=== PATIENT | male | born 1995 | race Native Hawaiian/Other Pacific Islander ===

== ENCOUNTER 2022-02-02 14:30 | Emergency (ER) | payer BC, SELFPAY ==
[2022-02-02 14:37] VITALS: BP 158/106; PULSE 121; RESP 20; TEMP 35.7; O2SAT 96; BMI 44.9
--- NOTE | 2022-02-02 15:02 | ED_ITS ---
HPI - General Adult General Time Seen by Provider: 15:02 Date Seen: 02/02/22 Chief complaint: Cough Stated complaint: Cough Time Seen by Provider: 02/02/22 14:36 Source: patient and RN notes reviewed Mode of arrival: ambulatory Limitations: no limitations History of Present Illness HPI narrative: Patient is a 26-year-old male coming in with cough that has been present for about 2 weeks now. He states that he has had some coffee now for 2 weeks, the length of this illness is what ultimately brought him in. His son was sick with RSV and he thinks maybe that is what he picked up. He really has only had a cough with this though. No fevers. At night in the morning is when the cough is the worst. It will be productive of green phlegm. Getting in the shower does help loosen things up. He has a rescue inhaler with albuterol but has not felt like he has needed to use it. He has had no chest pain, no shortness of breath. He has had some right-sided sore throat but has no pain with swallowing, no difficulty swallowing. This is intermittent/occasional. No otalgia. Cough drops help minimize his symptoms. He does wonder if he can have a note to be off work tomorrow and give him another day to rest. He has a history of asthma which was bad as a child but has not been problematic as a young adult. He is a nonsmoker. Related Data Previous Rx's Medication Instructions Recorded azithromycin 250 mg tablet 250 mg PO DAILY #6 tabs 02/02/22 prednisone 20 mg tablet 20 mg PO BID #10 tabs 02/02/22 Allergies Allergy/AdvReac Type Severity Reaction Status Date / Time No Known Drug Allergies Allergy Verified 02/02/22 14:39 Review of Systems Status of ROS: Reports: 6 or more systems reviewed and unremarkable except as noted in History and below Exam Const: Vital Signs, click to edit/add: Vital Signs - 24 hr 02/02/22 14:37 Temperature 96.3 F L Pulse Rate [Right Pulse Oximeter] 121 H Respiratory Rate 20 Blood Pressure [Ri ght Upper Arm] 158/106 H Pulse Oximetry 96 Oxygen Delivery Me thod Room Air Documenting provider has reviewed patient's vital signs: yes Common normals: no apparent distress, oriented x3, no limitations, alert and well nourished General appearance: cooperative, comfortable and well kempt Nutritional appearance: obese Other: Speaking in complete sentences, no difficulty talking, no hoarseness. HENMT: Common normals: normocephalic, head/scalp atraumatic, hearing grossly normal bilaterally, external ears normal, EAC's normal, TM's normal bilaterally, external nose normal, nasal mucous membranes and turbinates normal, moist oral mucous membranes, oropharynx normal, dentition normal and gingiva normal Head and scalp: normocephalic and atraumatic Nose: external nose normal and nasal mucous membranes and turbinates normal External ear: external ears normal External auditory canal: EAC's normal Tympanic membrane: TM's normal bilaterally Throat: posterior oropharynx normal and uvula midline Eye: Common normals: PERRL, EOMs intact bilaterally, conjunctivae normal and no scleral icterus Conjunctiva: conjunctiva(e) normal Pupil: PERRL Neck & C-Spine: Common normals: full ROM, no lymphadenopathy, supple, no meningeal signs, no JVD and thyroid normal Thyroid: thyroid normal Chest: Common normals: inspection of chest normal Resp: Common normals: normal respiratory effort, no retractions, no use of accessory muscles and clear to auscultation bilaterally Auscultation: clear to auscultation bilaterally Cardio: Common normals: no JVD, regular rate, regular rhythm, S1 normal heart sound, S2 normal heart sound, no gallops, no clicks and no murmurs Rate: regular rate Rhythm: regular rhythm Heart sounds: S1 normal and S2 normal Neuro: Common normals: oriented x3 Sensorium/orientation: alert Meningeal signs: no meningeal signs Psych: Appearance: well kempt Course Course Hospital Course: Reviewed with patient options. Did discuss we certainly could consider chest x- ray and CBC but without a fever and his normal clinical exam, I doubt that these will change our management. Given he has a history of asthma, I do think we can proceed with a short course of steroids to help with any postinflammatory viral issues/asthma. I am happy to send in a prescription for antibiotics but would request that he refrain from using them at this point. I think that this is post viral and possibly some asthma but there is nothing suggestive in the h istory or his clinical exam that makes me suspicious of bacterial infectious etiology. Cough does not sound severe enough that I really would not suspect that this would be pertussis. I can send a prescription with him for a Zithromax sent to be used if he is not improving in the next few days with the steroids or feels his cough starts to worsen. Did go over signs and symptoms for return for re-evaluation as well. Vital Signs Vital signs: Initial Vital Signs Temperature 96.3 F L 02/02/22 14:37 Temperature Source Temporal Artery Scan 02/02/22 14:37 Pulse Rate 121 H 02/02/22 14:37 Respiratory Rate 20 02/02/22 14:37 Blood Pressure 158/106 H 02/02/22 14:37 Blood Pressure Mean 123 02/02/22 14:37 Blood Pressure Position Sitting 02/02/22 14:37 Pulse Oximetry 96 02/02/22 14:37 Oxygen Delivery Method 02/02/22 14:37 Vital Signs Temperature 96.3 F L 02/02/22 14:37 Pulse Rate 121 H 02/02/22 14:37 Respiratory Rate 20 02/02/22 14:37 Blood Pressure 158/106 H 02/02/22 14:37 Pulse Oximetry 96 02/02/22 14:37 Oxygen Delivery Method 02/02/22 14:37 Temperature 96.3 F L 02/02/22 14:37 Pulse Rate 121 H 02/02/22 14:37 Respiratory Rate 20 02/02/22 14:37 Blood Pressure 158/106 H 02/02/22 14:37 Pulse Oximetry 96 02/02/22 14:37 Oxygen Delivery Method 02/02/22 14:37 Critical Care Time Critical Care Time Critical Care Time: No Discharge Plan Discharge Clinical Impression: Acute cough, History of asthma Condition: Stable Instructions: Acute Cough (ED) Additional Instructions: Start prednisone and take as prescribed, take with food. If you are not improving on the prednisone, failure cough is worsening or develops fever, can start the antibiotic. If it any point you have concern for significant worsening, develops shortness of breath or difficulty breathing, have severe sore throat, do recommend re-evaluation. Activity Level: Activity as Tolerated Prescriptions: New prednisone 20 mg tablet 20 mg PO BID Qty: 10 0RF azithromycin 250 mg tablet 250 mg PO DAILY Qty: 6 0RF Taper: Z-ETHAN 500 mg Q24H for 1 Day and 0 Hour 250 mg Q24H for 4 Days and 0 Hour Rx Instructions: 500mg po day 1, then 250 mg orally days 2-5 Follow Up/Referrals: Provider,Not a Local [Primary Care Provider] - Stand Alone Forms: [facility] Info Instructions
--- OUTSIDE RECORDS SUMMARY | 2022-02-02 15:38 | XMS_ITS | Encounter Summary ---
:1995 Author Organization [facility] Address [address] [place] [address] Care Team Providers Name Role Phone Unavailable Primary Care Provider Unavailable Reason for Visit Reason Comments COVID Nurse Line Encounter Details Date Type Department Care Team Description 02/20/2020 Clinical Communication Division of Jyoti Delatorre Nurse Line [facility] Vanessa Downs, [facility] [address] [facility], in [facility] [address] [place] [phone] [address] [facility] (Work) [place] [phone] Social History Tobacco Use Types Packs/Day Years Used Date Smoking Tobacco: Never Assessed Sex Assigned at Date Recorded Not on file documented as of this encounter Miscellaneous Notes Telephone Encounter - Jyoti Delatorre RDaya - 02/20/2020 1:36 PM CDT COVID-19 Nurse Line Screening Exposed on 02/17 so will need to quarantine 03/03, regardless of a negative test. ASSESSMENT COVID 19 Screening Have you had close contact with a person who has a LABORATORY CONFIRMED case of COVID-19 in the past14 days?: Yes - Continue screening. In the last 48 hours have you had any of the following symptoms?: New cough, New shortness of breath, New sore throat, New myalgias (muscle aches) Do you have any urgent symptoms?: None (Continue Screening) Has the patient had COVID19 diagnosed with a PCR test in the last 90 days? : No (End Screening- Patient Meets Criteria for Testing PLAN Endpoint recommendation: Screening positive, testing indicated, advised to be swabbed for COVID-19, sent to [facility] located [address] to back of the clinic; cannot access from main parking lot. Testing hours are M-F 10 am to 5 pm and Sat-Sun 9 am to 2 pm. When you arrive stay in your car and someone will direct you. , If it is currently after hours, please report to the testing site when it is next open. and Please avoid using public transportation per CDC recommendation.If you do not have personal transportation please self-quarantine until a personal transportation option is available. and Quarantine for 14 days due to a laboratory confirmed case of COVID-19 exposure regardless of your test results. Care Points provided: STANDARD PRECAUTIONS FOR ALL PATIENTS: Wash hands often with soap and water for at least 20 seconds, especially after blowing your nose, coughing, sneezing, or having been in a public place. If soap and water aren't available, use a hand mechanical design engineer facilities that contains at least 60% alcohol. Avoid close contact with anyone who may be exhibiting respiratory symptoms such as coughing and sneezing. Avoid touching your eyes, nose and mouth. Clean and disinfect frequently touched surfaces daily. Cover your mouth and nose with a cloth face cover when around others or in public. The cloth face cover is not a substitute for social distancing. Continue to keep about 6 feet between yourself andothers. Monitor for symptoms. Do not take your temperature within 30 minutes of exercise. If your test or screen is negative and new symptoms develop please contact your provider if it has been greaterthan 72 hours since you were tested. Educational Resource: https://www.cdc.gov/coronavirus/2019-ncov/ fchcjpt-wlxbmoa-uksv/index.html RECOMMENDATIONS TESTING CRITERIA IS MET: Stay home except to get medical care. Quarantine for 14 days if exposed to someone with a laboratory confirmed case of COVID-19 exposure regardless of your test results. Avoid public areas and public transportation. Separate yourself from other people and stay in a specific sick room if possible. Wear a cloth face covering, over your nose and mouth if youmust be around other people even at home). Cover your nose and mouth when coughing or sneezing. Contact employer/occupational health department to notify them that they are being tested. Seek emergent care if any of the following occur: 1) Trouble breathing, 2) Bluish lips or face, 3) Persistent pain or pressure in the chest, 4) Newly confused or unable to stay alert and awake. Notify appropriate care provider if any new or worsening symptoms. You may need re-testing if it has been greater than 72 hours after a negative COVID- 19 test result. Education Resources: https://www.cdc.gov/coronavirus/2019- ncov/un-qlj-pjz-sick/lhfva-bpzt-vxod.html Education: Patient/caregiver able to teach back Patient agreeable to plan of care: Yes The following references were used: [facility] novel coronavirus (COVID- 19) resources Nursing judgement documented in this encounter Plan of Treatment Not on filedocumented as of this encounter Visit Diagnoses Not on filedocumented in this encounter
--- OUTSIDE RECORDS SUMMARY | 2022-02-02 15:38 | XMS_ITS | Encounter Summary ---
:1995 Author Organization [facility] Address [address] [place] [address] Care Team Providers Name Role Phone Unavailable Primary Care Provider Unavailable Reason for Visit Reason Onset Date Comments Outpatient COVID-19 Testing 02/20/2020 Encounter Details Date Type Department Care Team Description 02/20/2020 External Outreach Department of Dale Corcoran Infect ion Upper Internal Medicine in [facility] ([place], [place] [address]) [address] [place] [phone] Social History Tobacco Use Types Packs/Day Years Used Date Smoking Tobacco: Never Assessed Sex Assigned at Date Recorded Not on file documented as of this encounter Progress Notes Gladys Quintero R.N. - 02/20/2020 3:16 PM CDT Encounter created for the drive-through COVID-19 testing. documented in this encounter Miscellaneous Notes Result Encounter Note - Gonzalo Landry M.B., Ch.B., M.S. - 02/21/2020 6:13 AM CDT Positive COVID test results reviewed. No high risk factors of COVID identified in chart. Please sendCFCT low risk letter. For questions, Patient can contact PCP or local Public Health Department. documented in this encounter Plan of Treatment Not on filedocumented as of this encounter Procedures Procedure Name Priority Date/Time Associated Diagnosis Comme nts SARS CORONAVIRUS-2 Routine 02/20/2020 4:35 PM Infection Upper Results for this RNA, V CDT Respiratory procedure are i n the results section. documented in this encounter Results (ABNORMAL) SARS Coronavirus-2 RNA, V Symptomatic (02/20/2020 4:35 PM CDT) [facility] Method Time Signature SARS-CoV-2 Swab, 02/21/2020 [facility] Specimen Nasopharynx 2:14 AM CDT Source SARS CoV-2 Detected (C) Undetected 02/21/2020 [facility] RNA, TMA 2:14 AM CDT Comment: SARS-CoV-2 RNA present. ----ADDITIONAL INFORMATION---- This test is performed using the Aptima SARS-CoV-2 assay ([employer] which has received Emergency Use Authori zation (EUA) by the U.S. Food and Drug Administration. Fact sheets for this Emergency Use Autho rization (EUA) assay can be found at the following links: For Healthcare Providers: https://www.fd a.gov/media/410097/download For Patients: https://www.fda.gov/media/ 232238/download Specimen Anatomical Collection Method Collection Time Receive d Time (Source) Location / / Volume Laterality Varies 02/20/2020 4:35 PM 0 7:41 (Nasopharynx) CDT PM CDT Dale Corcoran D.O. LAB MICROBIOLOGY - GENERAL O RDERABLES Performing Organization Address City/State/ZIP Code Phon e Number [facility]- [address] [place] [address] [facility] [place] [address] [address] documented in this encounter Visit Diagnoses Diagnosis Infection Upper Respiratory - Primary documented in this encounter Additional Health Concerns Infection Onset Date Last Indicated Resolved Time COVID19 Pending 02/20/2020 02/20/2020 02/21/2020 2:14 AM CDT documented as of this encounter
--- OUTSIDE RECORDS SUMMARY | 2022-02-02 15:38 | XMS_ITS | Encounter Summary ---
:1995 Author Organization [facility] Address [address] [place] [address] Care Team Providers Name Role Phone Unavailable Primary Care Provider Unavailable Encounter Details Date Type Department Care Team Description 04/06/2012 - Hospital Encounter HX [facility] BENNY Berkowitz, 04/07/2012 YOANA Luevano M.D. Social History Tobacco Use Types Packs/Day Years Used Date Smoking Tobacco: Never Assessed Sex Assigned at Date Recorded Not on file documented as of this encounter Plan of Treatment Not on filedocumented as of this encounter Visit Diagnoses Not on filedocumented in this encounter
--- OUTSIDE RECORDS SUMMARY | 2022-02-02 15:38 | XMS_ITS | Encounter Summary ---
:1995 Author Organization [facility] Address [address] [place] [address] Care Team Providers Name Role Phone Unavailable Primary Care Provider Unavailable Reason for Visit Reason Comments COVID Nurse Line Encounter Details Date Type Department Care Team Description 02/21/2020 Clinical Communication Division of CONSUELO Whyte Nurse Jessica [facility] Internal [facility] [place] [phone] [place], in (Work) [place], [place] [address] [place] [phone] Social History Tobacco Use Types Packs/Day Years Used Date Smoking Tobacco: Never Assessed Sex Assigned at Date Recorded Not on file documented as of this encounter Miscellaneous Notes Telephone Encounter - Rhianna Whyte R.N. - 02/21/2020 11:44 AM CDT Patient is inquiring about their COVID results. Pt teaching done. Also needs his full name on results for work. Transferred to Medical records. PLAN Endpoint recommendation: If your results are DETECTED, the result of your nasal swab has come back positive for the virus that causes COVID-19. This result requires interpretation by a physician. For patients who have a [facility] Patient Online Services Account, additional information will be sent via a secure message or a provider will call you within 48 to 72 hours to review your personal situation and give recommendations for ongoing care. Please continue to self-isolate in your home until you have received your care plan or discussed your care plan with your provider. Care Points provided: STANDARD PRECAUTIONS FOR ALL PATIENTS: Avoid close contact with anyone who maybe exhibiting respiratory symptoms such as coughing and sneezing. Monitor for symptoms. Do not take your temperature within 30 minutes of exercise. If your test or screen is negative and new symptoms develop please contact your provider if it has been greater than 72 hours since you were tested. Educational Resource: https://www.cdc.gov/coronavirus/2019-ncov/dhszcdp-nilkvyq-sfnp/index.html Education: Patient/caregiver able to teach back Patient agreeable to plan of care: Yes Resource:https://www.cdc.gov/coronavirus/2019-ncov/downloads/locw-dgtd-7577-nCoV -fact-sheet.pdf documented in this encounter Plan of Treatment Not on filedocumented as of this encounter Visit Diagnoses Not on filedocumented in this encounter Additional Health Concerns Infection Onset Date Last Indicated Resolved Time COVID19 Pending 02/20/2020 02/20/2020 02/21/2020 2:14 AM CDT COVID19 02/20/2020 02/20/2020 03/21/2020 4:46 AM GLASS GLAZIER documented as of this encounter
--- OUTSIDE RECORDS SUMMARY | 2022-02-02 15:38 | XMS_ITS | Clinical Summary ---
:1995 Author Organization [facility] [place] [address] Care Team Providers Name Role Phone Pcp, No Primary Care Provider Unavailable Allergies Active Allergy Reactions Severity Noted Date Comments Adhesive Rash 01/23/2010 Latex Rash 08/26/2012 Unlisted Allergen (Include Rash 05/06/2017 P atient states that he has Detail In Comments) an aller gy to either zinc or stainless. Medications Medication Sig Dispensed Refills Start Date End Date Status omeprazole (PRILOSEC) TAKE ONE CAPSULE 0 06/14/2021 Active 20 mg Delayed-Release (20 MG) BY MOUTH capsule ONCE DAILY BEFORE A MEAL. FLUoxetine (PROZAC) 20 Take 1 Capsule 30 Capsule 3 08/29/2021 Active mg capsuleIndications: (20 mg) by mouth Severe episode of every morning. recurrent major depressive disorder, without psychotic features (HC), GERALDO (generalized anxiety disorder) hydrOXYzine HCL Take 1 Tablet (25 25 Tablet 0 08/29/2021 Active (ATARAX) 25 mg mg) by mouth tabletIndications: GERALDO every 6 hours if (generalized anxiety needed for disorder) Anxiety or Itching. Active Problems Problem Noted Date Generalized anxiety disorder 07/04/2019 Moderate episode of recurrent major depressive disorde r 07/04/2019 Polysubstance abuse 07/04/2019 Attention deficit hyperactivity disorder (ADHD), combi mi type 07/04/2019 Palpitations 07/04/2019 Mild intermittent asthma without complication 08/22/19 17 MDD (major depressive disorder), recurrent episode, mo derate 08/21/2016 GERALDO (generalized anxiety disorder) 08/21/2016 GERD (gastroesophageal reflux disease) 08/23/2009 Keratosis pilaris 08/23/2009 Oppositional defiant disorder of childhood or adolesce nce 12/27/2008 Encounters Date Type Specialty Care Team Description 11/11/2021 Office Visit Kym Dudley, Jaw P ain (Pt states excruciating pa in on right side for about a week/Worse when yawns or c hews); Medication Luz Maria gement (refill on anti depressants); Abscess (below belly button) 11/11/2021 Travel 11/11/2021 Refill Joselito Woods, Refill Request (Escitalopram MD Jansen) 2021 Travel 2021 Nurse Triage Pcp, No Jaw Pain from Last 3 Months Immunizations Name Administration Dates Next Due DTaP 08/09/2002, 11/02/2001, 10/10/1998, 05/24/1998 HIB PRP-OMP (PedvaxHIB) 10/10/1998, 05/24/1998 HPV 9 (Gardasil 9) 08/18/2016, 12/14/2015, 11/09/2015 Hepatitis A (Peds) 08/18/2016, 11/09/2015 Hepatitis B (Peds) 11/09/2015, 02/08/2010, 10/10/1998, 05/24/1998 Human Papilloma Virus Vaccine 12/14/2015, 11/09/2015 Inactivated Polio Vaccine 02/08/2010, 08/09/2002, 10/10/1998 , 05/24/1998 Influenza A (H1N1), Inactivated 05/09/2009 Influenza Virus, Unspecified 05/09/2009, 01/24/2009, 006 Influenza, IIV3 (Age >=3 years) 05/14/2011, 01/24/2009, 02/26 Influenza, IIV4 05/01/2020, 05/10/2019, 01/16/2017 MMR 05/14/2011, 02/08/2010 Meningococcal Vaccine (Menactra) 11/09/2015 Tdap 01/03/2017, 02/08/2010 Varicella Vaccine 05/14/2011, 02/08/2010 Family History Patient is adopted Medical History Relation Name Comments Unknown Father Unknown Mother Relation Name Status Comments Father Mother Social History Tobacco Use Types Packs/Day Years Used Date Former Smoker Cigarettes 0.25 08/04/2017 - 1 06/19/2018 Smokeless Tobacco: Never Used Tobacco Cessation: Ready to Quit: Yes; C ounseling Given: Yes Alcohol Use Standard Drinks/Week Comments Yes 0 (1 standard drink = 0.6 oz pure alcoho l) 1-2 times a week Alcohol Habits Answer Date Recorded How often do you have a drink containing alcohol? 2-4 times a month 11/04/2018 How many drinks containing alcohol do you have on a 1 or 2 11/26/2018 typical day when you are drinking? How often do you have six or more drinks on one Monthly 11/04/2018 occasion? Comment: 1-2 times a week 11/11/2021 Sex Assigned at Date Recorded Not on file Obstetrics History Last Filed Vital Signs Vital Sign Reading Time Taken Comments Blood Pressure 125/88 11/11/2021 2:40 PM CDT Pulse 85 11/11/2021 2:40 PM CDT Temperature 37.2 ??C (99 ??F) 11/11/2021 2:40 PM CDT Respiratory Rate 14 06/11/2021 3:04 PM MEDICAL UNDERWRITER Oxygen Saturation 95% 11/11/2021 2:40 PM CDT Inhaled Oxygen Concentration - - Weight 175.9 kg (387 lb 12.8 oz) 08/29/2021 4:18 PM CDT Height 188 cm (6' 2) 06/11/2021 3:04 PM MEDICAL UNDERWRITER Body Mass Index 49.79 06/11/2021 3:04 PM MEDICAL UNDERWRITER Plan of Treatment Health Maintenance Due Date Last Done Comments COVID-19 vaccine series (#1) 05/11/1998 Pneumococcal series for age 19-64 11/09/2003 (1 - PCV) Hepatitis C screening for age 0711/09/2015 18-79 Influenza for age 9-49 12/26/2021 05/01/2020, 05/10/2019, 01/16/2017, Additional history exists BMI (ht and wt on same day) for 06/11/2022 06/11/2021, 04/27, age 18+ 05/01/2020, Additional history exists Depression screening for age 12+ 08/29/2022 08/29/2021, , 05/01/2020, Additional history exists Tetanus booster 01/03/2027 01/03/2017, 02/08/2010 HPV series for age 9-26 Completed 08/18/2016, 12/14/2015, 12/14/2015, Additional history exists Tdap Completed 01/03/2017, 02/08/2010 Results Not on filefrom Last 3 Months Insurance Payer Benefit Plan / Subscriber ID Effective Dates Phone Addre ss Type Group [place] [employer] [id number] 2019-Present [address] [address] [place] [address] Dragan Guzman Motor Vehicle Self [address] ([place]) [place] [address] Care Teams Guest Experience Representative Relationship Specialty Start Date End Date Pcp, No PCP - General 09/17/20 .
--- OUTSIDE RECORDS SUMMARY | 2022-02-02 15:38 | XMS_ITS | Encounter Summary ---
:1995 Author Organization [facility] Address [address] [place] [address] Care Team Providers Name Role Phone Unavailable Primary Care Provider Unavailable Encounter Details Date Type Department Care Team Description 03/13/2021 Admin Visit Department of Family Medicine, [address] [address] [facility] [phone] Social History Tobacco Use Types Packs/Day Years Used Date Smoking Tobacco: Never Assessed Sex Assigned at Date Recorded Not on file documented as of this encounter Plan of Treatment Not on filedocumented as of this encounter Visit Diagnoses Not on filedocumented in this encounter Additional Health Concerns Infection Onset Date Last Indicated Resolved Time COVID19 Pending 03/13/2021 03/13/2021 03/14/2021 1:36 AM THREE D[employer]IONAL [employer] INSTRUCTOR documented as of this encounter
--- OUTSIDE RECORDS SUMMARY | 2022-02-02 15:38 | XMS_ITS | Encounter Summary ---
:1995 Author Organization [facility] Address [address] [place] [address] Care Team Providers Name Role Phone Unavailable Primary Care Provider Unavailable Reason for Visit Reason Comments CONSUELO Nurse Line Encounter Details Date Type Department Care Team Description 03/13/2021 Clinical Communication Division of Rosa [facility] Nurse Jessica [facility] M, R.NRick [facility] [place] [address] [facility] in [place], [place] [address] [address] [facility] [phone] [place], [place] (Work) [phone] Social History Tobacco Use Types Packs/Day Years Used Date Smoking Tobacco: Never Assessed Sex Assigned at Date Recorded Not on file documented as of this encounter Miscellaneous Notes Telephone Encounter - Rosa Pa RRickNRick - 03/13/2021 10:52 AM CST COVID-19 Nurse Line Screening ASSESSMENT Initial Screening Pathway Select appropriate pathway: : Adult In the last 48 hours, have you had a fever* OR symptoms that are unrelated to a preexisting illness?: New sore throat,New loss of smell,New shortness of breath,New diarrhea,New muscle aches (runny nose) COVID Symptomatic Screening Do you have any of the following urgent symptoms?: No urgent symptoms noted (Continue Screening) Have you received a COVID-19 vaccine in the last 72 hours? : No vaccine received (Continue Screening) Have you had close contact* with a person who has a LABORATORY CONFIRMED case of COVID-19 in the past 14 days?: Yes- quarantine required, provide instructions (Continue Screening) (Thursday, at work) Have you tested positive for COVID-19 in the last 45 days?: No. COVID-19 testing is indicated (Continue Screening for Additional Testing) Additional Screening for Influenza, RSV and Strep Select appropriate region: : [place] Do you have any of the following respiratory syntonical virus (RSV) complications? : No complications noted (Continue Screening) Do you have any of the following high risk influenza criteria?: Chronic pulmonary disease including asthma or COPD Are all of the following Strep criteria met? : Age is between 18-75 years,No, all criteria are not met. Influenza testing is indicated. (End Screening) Symptom Onset Date of symptom onset: 03/11/21 Testing Recommendation Endpoint Is testing recommended? : Recommended to test Further Triage Needs Any further triage needs? : No further concerns noted. PLAN Endpoint recommendation: Symptomatic testing indicated, advised to be swabbed for COVID-19 and Influenza, sent to [facility] located at [address] [place] [address] ([facility]). An appointment is required for testing, please call [phone] Thursday-Thursday 7am to 6pm and Thursday & Thursday 9am to 4pm to schedule an appointment. Testing hours are 8am - 4:30pm daily. You can also schedule via your Patient Online Services account., Please avoid using public transportation per CDC recommendation. If you do not have personal transportation please self-quarantine until a personal transportation option is available. Standard Care Points -Get a COVID -19 vaccine as soon as you can if not fully vaccinated. -Wash hands frequently with soap and water, use hand returned materials inspector if soap and water aren't available. -Wear a mask over your nose and mouth to help protect yourself and others if not fully vaccinated and having no symptoms -Stay 6 feet between yourself and others who don't live with you. -Avoid crowds and poorly ventilated indoor spaces. -Seek emergent care if any of the following occur Trouble breathing Bluish lips or face Persistent pain or pressure in the chest New confusion or inability to rouse. -Notify your regular care provider of any new or worsening symptoms. Symptomatic Carepoints: Stay home and separate yourself from others and stay in a specific sick room if able. Avoid sharing personal or household items. Rest. Hydrate. Take Acetaminophen/Ibuprofen asneeded to control fever and muscles aches. Use over the counter medications as needed for other symptoms. If you have received a negative COVID-19 test result and continue to have new or worsening symptoms after 72 hours please call the COVID Nurse Line to assess if you need repeat testing or reach out to your Primary Care Provider for guidance. Exposure Carepoints: If you are not fully vaccinated, quarantine for 14 days from your last known exposure to someone with a laboratory confirmed case of COV ID-19 regardless of a negative test result unless otherwise directed. Education: Patient/caregiver able to teach back Patient agreeable to plan of care: Yes The following references were used: [facility] novel coronavirus (COVID- 19) resources CAPTAIN documented in this encounter Plan of Treatment Not on filedocumented as of this encounter Visit Diagnoses Not on filedocumented in this encounter
--- OUTSIDE RECORDS SUMMARY | 2022-02-02 15:38 | XMS_ITS | Clinical Summary ---
:1995 Author Organization [facility] Address [address] [place] [address] Care Team Providers Name Role Phone Unavailable Primary Care Provider Unavailable Source Comments Patient records contain information from all sites at [facility]. For routine questions regarding patient records, call [phone] during business hours, M-F 8:00 AM - 5:00 PM Central Time. Record requests for emergency care only can be directed to [phone] at any time.[facility] Immunizations Name Administration Dates Next Due H1N1 All Forms 05/09/2009 Influenza, Unspecified 01/24/2009, 03/23/2006 Social History Tobacco Use Types Packs/Day Years Used Date Smoking Tobacco: Never Assessed Sex Assigned at Date Recorded Not on file Plan of Treatment Health Maintenance Due Date Last Done Comments HIV Screening 1995 Hepatitis C Screening 1995 COVID-19 Vaccine (#1) 05/11/1998 Hepatitis B Vaccines (3 of 01/04/2016 11/09/2015, 0 3 - 3-dose series) Depression Screening 04/27/2021 (Annual PHQ-2) Influenza Vaccine (#1) 2022 05/01/2020, 05/10/2019, 01/16/2017, Additional history exists DTaP,Tdap,and Td Vaccines 01/03/2027 01/03/2017, 02/08/2010 , (7 - Td or Tdap) 08/09/2002, Additional history exists HPV Vaccines Completed 08/18/2016, 12/14/2015, 12/14/2015, Additional history exists Pneumococcal vaccine (0-64 Aged Out No lo nger eligible years) based on patient 's age to complete this topic Insurance Payer Benefit Plan Subscriber ID Effective Phone Address Typ e / Group Dates BLUE CROSS BCBS BLUE [id number] 2019-Prese ATTN: Franki adame HMO BLUE SHIELD PLUS O nt CONSUMER [facility] [address] [address] [place] [address]
== END 2022-02-02 15:40 | disposition home or self-care (01) ==
PROVIDERS: Emergency Provider Family Medicine; PCP Family Medicine
DX: R05.9 Cough, unspecified (principal)
CPT/HCPCS: 99283; 99284

== ENCOUNTER 2022-12-10 21:26 | Emergency (ER) | payer BC, SELFPAY ==
[2022-12-10 21:39] VITALS: BP 127/85; PULSE 118; RESP 16; TEMP 36.4; O2SAT 95; BMI 48.1
--- NOTE | 2022-12-10 21:56 | ED.GENADULT ---
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 27-year-old man presenting to the emergency department concern of possible C diff. 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 Apparently they were discussing Dragan symptoms of intermittent loose stools and diarrheal stools over the last 3 months along with 30 lb of weight loss unintentionally and it occurred to his father that he should be screened/tested for C diff. Has not had any fever. Abdominal pain tends to precede bowel movements. And at the moment is relatively pain-free. No hematochezia is noted. No exposures or ingestions noted other than time with his father. I note his tachycardia on arrival here and Dragan says that hospitals and is similar make him quite nervous and he struggles with anxiety. Sounds like while back went through about of depression as well. Otherwise no diagnosed health problems. Related Data Home Medications Medication Instructions Recorded Confirmed albuterol sulfate 90 mcg/actuation 1 - 2 puff inhalation Q4H PRN 12/10/22 12/10/22 aerosol inhaler (Ventolin HFA) dyspnea Allergies Allergy/AdvReac Type Severity Reaction Status Date / Time No Known Drug Allergies Allergy Verified 02/02/22 14:39 Review of Systems Status of ROS: Reports: 6 or more systems reviewed and unremarkable except as noted in History and below [facility] Social History Smoking Status: Former smoker Do you use any of these nicotine containing products: None Second hand tobacco smoke exposure: No How often do you have a drink containing alcohol: monthly or less How many standard drinks containing alcohol do you have on a typical day: 1 or 2 How often do you have six or more drinks on one occasion: Never AUDIT-C Alcohol total score: 1 Non-prescribed substance use: denies use Exam Narrative: Exam Narrative: Pleasant. NAD. Large head of hair. 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 Other tattoos as well. Skin otherwise is warm and dry. Heart is in an elevated rate and regular rhythm without murmur rub or gallop. Abdomen is soft not particularly tender certainly no peritoneal signs. Active bowel sounds. No masses are appreciated. Oropharynx is moist. Is breathing easily. Const: Vital Signs, click to edit/add: Vital Signs - 24 hr 12/10/22 21:39 Temperature 97.6 F Pulse Rate [Right Pulse Oximeter] 118 H Respiratory Rate 16 Blood Pressure [Ri ght Upper Arm] 127/85 Pulse Oximetry 95 Oxygen Delivery Me thod Room Air Documenting provider has reviewed patient's vital signs: yes Course Vital Signs Vital signs: Initial Vital Signs Temperature 97.6 F 12/10/22 21:39 Temperature Source Temporal Artery Scan 12/10/22 21:39 Pulse Rate 118 H 12/10/22 21:39 Pulse Rhythm Regular 12/10/22 21:39 Respiratory Rate 16 12/10/22 21:39 Blood Pressure 127/85 12/10/22 21:39 Blood Pressure Mean 99 12/10/22 21:39 Blood Pressure Position Sitting 12/10/22 21:39 Pulse Oximetry 95 12/10/22 21:39 Oxygen Delivery Method Room Air 12/10/22 21:39 Vital Signs Temperature 97.6 F 12/10/22 21:39 Pulse Rate 118 H 12/10/22 21:39 Respiratory Rate 16 12/10/22 21:39 Blood Pressure 127/85 12/10/22 21:39 Pulse Oximetry 95 12/10/22 21:39 Oxygen Delivery Method Room Air 12/10/22 21:39 Temperature 97.6 F 12/10/22 21:39 Pulse Rate 118 H 12/10/22 21:39 Respiratory Rate 16 12/10/22 21:39 Blood Pressure 127/85 12/10/22 21:39 Pulse Oximetry 95 12/10/22 21:39 Oxygen Delivery Method Room Air 12/10/22 21:39 Medical Decision Making MDM Narrative Medical decision making narrative: Given exposure at certainly prudent to check for C diff. Could be other form of colitis as well. Other gastrointestinal infection? Inflammatory/rheumatological bowel disorder? Weight loss may not be related to these stooling difficulties. No specific allergens identified. Question that is wanting to be answered in the immediate is whether not there is a presence of C diff. will check other labs though as well for baseline/initiation of workup for this weight loss. Would not be wanting IV. Is anxious enough about this visit. After discussion would appreciate a dose of lorazepam. White count certainly elevated. CRP is not. Will add stool cultures. Otherwise seems well here. See patient discharge plan Lab Data Lab results reviewed: Yes I reviewed the patient's lab results Labs: Lab Results 12/10/22 12/10/22 12/10/22 Range/Units 21:45 22:20 23:34 WBC 14.63 H (4.50-11.00) K/uL RBC 5.58 (4.30-5.90) m/uL Hgb 17.7 H (13.5-17.5) gm/dL Hct 52.0 (37.0-53.0) % MCV 93 (80-100) fL MCH 32 (26-34) pg MCHC 34 (32-36) gm/dL RDW Coeff of Kasie 12.7 (11.5-15.5) % Plt Count 272 (140-440) K/uL Neut % (Auto) 76.9 H (42.0-72.0) % Lymph % (Auto) 13.5 L (20-44) % [place] % (Auto) 8.1 (0.0-11.0) % Eos % (Auto) 0.2 (0.0-7.0) % Baso % (Auto) 0.1 (0.0-3.0) % Neut # (Auto) 11.30 H (1.7-7.0) K/uL Lymph # (Auto) 2.00 (0.90-2.90) K/uL [place] # (Auto) 1.20 H (0.00-0.90) K/UL Eos # (Auto) 0.00 (0.00-0.50) K/uL Baso # (Auto) 0.00 (0.00-0.30) K/uL Abs Immat Gran (auto) 0.20 (0.00-0.30) K/uL Imm/Tot Granulo (auto) 1.2 % ESR < 2 L (2-15) mm/hr Sodium 139 (135-149) mmol/L Potassium 4.3 (3.6-5.1) mmol/L Chloride 102 (96-114) mmol/L Carbon Dioxide 26 (20-32) mmol/L BUN 12 (5-24) mg/dL Creatinine 1.5 (0.5-1.5) mg/dL Estimated Creat Clear 89.98 Estimated GFR 66 ml/min Glucose 98 (60-115) mg/dL Calcium 9.8 (8.4-10.6) mg/dL Total Bilirubin 1.3 (0.1-1.5) mg/dL Direct Bilirubin 0.2 (0.0-0.5) mg/dL AST 34 (12-35) U/L ALT 45 (4-50) U/L Alkaline Phosphatase 121 (40-150) U/L C-Reactive Protein 0.6 (0.5-1.0) mg/dL Total Protein 8.6 H (6.0-8.3) g/dL Albumin 5.1 H (3.3-5.0) g/dL Stl C. diff Tox B Gene Negative (Negative) Stl C. diff [id number] PRESUMPTIVE NEGATIVE (Negative) Lab Acknowledgement Test Added Discharge Plan Discharge Clinical Impression: Weight loss, unintentional, Diarrheal stools Patient Disposition: Home, Self-Care Condition: Stable Instructions: Acute Diarrhea (ED) Additional Instructions: Stool culture will be pending here. We will call if there is anything that needs to be treated I would call tomorrow to arrange follow-up in clinic sometime within the next week or 2 to discuss next steps in evaluation. This might include colonoscopy or other stool studies. Might even repeat the C diff test. These unusual stools may or may not be related to your weight loss. Otherwise return for persistent and uncontrolled pain, fever, repeated vomiting. Prescriptions: No Action albuterol sulfate [Ventolin HFA] 90 mcg/actuation HFA aerosol inhaler 1 - 2 puff INHALATION Q4H PRN (Reason: dyspnea) Follow Up/Referrals: Provider,Not a Local [Primary Care Provider] - Stand Alone Forms: [employer] Info Instructions
[2022-12-10] MEDS: LORazepam 1 MG TABLET PO (22:15)
[2022-12-10 22:24] LABS: Basophils Percent Auto 0.1 % (0.0-3.0); Eosinophils Percent Auto 0.2 % (0.0-7.0); Hemoglobin* 17.7 gm/dL (13.5-17.5); Immature Granulocytes Pct Auto 1.2 %; Lymphocytes Percent Auto 13.5 % (20-44); Mean Corpuscular HGB Conc 34 gm/dL (32-36); Mean Corpuscular Hemoglobin 32 pg (26-34); Mean Corpuscular Volume 93 fL (80-100); Monocytes Percent Auto 8.1 % (0.0-11.0); Neutrophils Percent Auto 76.9 % (42.0-72.0); Platelet Count* 272 K/uL (140-440); RDW Coefficient of Variation % 12.7 % (11.5-15.5); Red Blood Count 5.58 m/uL (4.30-5.90); White Blood Count* 14.63 K/uL (4.50-11.00)
[2022-12-10 22:37] LABS: Albumin* 5.1 g/dL (3.3-5.0); Chloride* 102 mmol/L (96-114)
[2022-12-10 22:38] LABS: Potassium* 4.3 mmol/L (3.6-5.1); Sodium* 139 mmol/L (135-149)
[2022-12-10 22:40] LABS: Aspartate Amino Transferase* 34 U/L (12-35); Bilirubin Direct* 0.2 mg/dL (0.0-0.5); Bilirubin Total* 1.3 mg/dL (0.1-1.5); Carbon Dioxide* 26 mmol/L (20-32); Creatinine* 1.5 mg/dL (0.5-1.5); Est. Creatinine Clearance* 89.98; Estimated Glomerular Filt Rate 66 ml/min; Total Protein* 8.6 g/dL (6.0-8.3)
[2022-12-10 22:41] LABS: Alanine Aminotransferase* 45 U/L (4-50); Alkaline Phosphatase* 121 U/L (40-150); Blood Urea Nitrogen* 12 mg/dL (5-24); Calcium* 9.8 mg/dL (8.4-10.6); Glucose* 98 mg/dL (60-115)
[2022-12-10 22:43] LABS: C Reactive Protein* 0.6 mg/dL (0.5-1.0)
[2022-12-10 22:43] LABS: C.Difficile Negative (Negative); CDIFFEPI 027 PRESUMPTIVE NEGATIVE (Negative)
[2022-12-10 22:52] LABS: Slide Review Reflex No
[2022-12-11 00:23] LABS: Erythrocyte SedimentationRate* < 2 mm/hr (2-15)
== END 2022-12-10 23:40 | disposition home or self-care (01) ==
PROVIDERS: Emergency Provider Family Medicine
DX: R63.4 Abnormal weight loss (principal)
CPT/HCPCS: 36415; 80048; 80076; 85025; 85651; 86140; 87045; 87046; 87427; 87493; 99283; 99284; A9270

== ENCOUNTER 2023-08-30 22:06 | Emergency (ER) | payer BC, SELFPAY ==
[2023-08-30 22:18] VITALS: BP 166/99; PULSE 89; RESP 18; TEMP 36.9; O2SAT 99; BMI 39.0
--- NOTE | 2023-08-30 23:38 | ED.GENADULT ---
HPI - General Adult General Chief complaint: Headache/Migraine Stated complaint: headache Time Seen by Provider: 08/30/23 23:31 History of Present Illness HPI narrative: CC: Headache headache for last few days. intermittent. denies n/v, diarrhea, visual changes. 27-year-old man presenting to the emergency depart with complaint of headache. Describes a digging sensation above his right eye that goes up over the right scalp. Does not normally get headaches. This been going on for few days. No recent trauma. No weakness or discoordination. No rhinorrhea. No rashes. Related Data Home Medications ?Medication ?Instructions ?Recorded ?Confirmed albuterol sulfate 90 mcg/actuation 1 - 2 puff inhalation Q4H PRN 12/10/22 05/04/23 aerosol inhaler (Ventolin HFA) dyspnea omeprazole 20 mg capsule,delayed 20 mg PO DAILY 08/30/23 08/30/23 release Allergies Allergy/AdvReac Type Severity Reaction Status Date / Time No Known Drug Allergies Allergy Verified 08/30/23 22:21 Review of Systems Status of ROS: Reports: 6 or more systems reviewed and unremarkable except as noted in History and below [facility] Social History Smoking Status: Former smoker Do you use any of these nicotine containing products: None Second hand tobacco smoke exposure: No How often do you have a drink containing alcohol: monthly or less How many standard drinks containing alcohol do you have on a typical day: 1 or 2 How often do you have six or more drinks on one occasion: Never AUDIT-C Alcohol total score: 1 Non-prescribed substance use: denies use Exam Narrative: Exam Narrative: Pleasant. Large stature. Calm. Seems a little uncomfortable. Cranial nerves 2 through 12 intact. Pupils are equal. There are some small well-healed scars on the right brow. No rash or blisters. Neck is supple nontender. The distribution of pain as he had demonstrates is on the right forehead and parietal scalp. There is no swelling or tenderness to palpation specifically of the temples. No rhinorrhea. No cervical lymphadenopathy. No weakness. No sensory deficits apparent otherwise. Moving all extremities without difficulty Const: Vital Signs, click to edit/add: Vital Signs - 24 hr 08/30/23 22:18 Temperature 98.5 F Pulse Rate [Right Femoral] 89 Respiratory Rate 18 Blood Pressure [Ri ght Upper Arm] 166/99 H Pulse Oximetry 99 Oxygen Delivery Me thod Room Air Documenting provider has reviewed patient's vital signs: yes Course Vital Signs Vital signs: Initial Vital Signs Temperature 98.5 F 08/30/23 22:18 Temperature Source Temporal Artery Scan 08/30/23 22:18 Pulse Rate 89 08/30/23 22:18 Respiratory Rate 18 08/30/23 22:18 Blood Pressure 166/99 H 08/30/23 22:18 Blood Pressure Mean 121 H 08/30/23 22:18 Blood Pressure Position Sitting 08/30/23 22:18 Pulse Oximetry 99 08/30/23 22:18 Oxygen Delivery Method Room Air 08/30/23 22:18 Vital Signs Temperature 98.5 F 08/30/23 22:18 Pulse Rate 89 08/30/23 22:18 Respiratory Rate 18 08/30/23 22:18 Blood Pressure 166/99 H 08/30/23 22:18 Pulse Oximetry 99 08/30/23 22:18 Oxygen Delivery Method Room Air 08/30/23 22:18 Temperature 98.5 F 08/31/23 00:46 Pulse Rate 78 08/31/23 00:46 Respiratory Rate 18 08/31/23 00:46 Blood Pressure 154/84 H 08/31/23 00:46 Pulse Oximetry 99 08/31/23 00:46 Oxygen Delivery Method Room Air 08/31/23 00:46 Medical Decision Making MDM Narrative Medical decision making narrative: Pain appears to be emanating from the right supraorbital area, supraorbital nerve. No red flags otherwise to warrant imaging. However this is a new headache. Discussed relief of this headache by standard IV means verses trial of anesthetic injection in the area of the supraorbital nerve. Risks and benefits were discussed. Mr. Guzman decided to proceed with this injection. I injected 1.5mL of bupivacaine 0.25% injected surrounding the right supraorbital nerve after cleansing area with alcohol swab. Tolerated. On reassessment headache was relieved. Noted tingling in the scalp distribution of the supraorbital nerve. No motor loss noted. Puzzled as to why this would have started now. Recommending follow-up if this recurs. See patient discharge plan for further discussion/plan Discharge Plan Discharge Clinical Impression: Headache Patient Disposition: Home, Self-Care Condition: Improved Additional Instructions: As I said, this headache seems to be emanating or somehow affected by the supraorbital nerve on your right forehead. If this is coming back, I would consider following up for re-evaluation and possible steroid injection or other in the same location. Ice packs applied in this area might also be helpful. Otherwise can take ibuprofen up to 800 mg per dose or up to 1000 mg of acetaminophen per dose. Prescriptions: No Action omeprazole 20 mg capsule,delayed release(DR/EC) 20 mg PO DAILY albuterol sulfate [Ventolin HFA] 90 mcg/actuation HFA aerosol inhaler 1 - 2 puff INHALATION Q4H PRN (Reason: dyspnea) Follow Up/Referrals: Provider,Not a Local [Referring] - Stand Alone Forms: [employer] Info Instructions
--- OUTSIDE RECORDS SUMMARY | 2023-08-31 00:30 | XMS_ITS | Clinical Summary ---
Author Name Unknown Organization [employer] [facility] Address [place], [place] [address] Care Team Providers Care Drivers License Examiner Name Role Phone Tayler Vieira MD Primary Care Prov ider Allergies Active Allergy Reactions Criticality Noted Date Comments Adhesive Rash 01/23/2010 Latex Rash 08/26/2012 Unlisted Allergen (Include Detail In Comments) Rash 05/06/2017 Patient states that he has an allergy to either zinc or stainless. Medications Medication Sig Dispensed Refills Start Date End Date Status albuterol HFA (PRO-AIR; VENTOLIN; PROVENTIL) 90 mcg/actuation inhalerIndications:Whe maximo Inhale 1-2 Puffs by mouth every 4 hours if needed for Shortness Of Breath. 3 Each 08/05/2022 Active omeprazole 20 mg tabletIndications:Lolita roesophageal reflux disease, unspecified whether esophagitis present Take 1 Tablet (20 mg) by mouth once daily before a meal. 90 Tablet 3 05/08/2023 Active polyethylene glycoL (MIRALAX) 17 gram/scoop powderIndications:Cons tipation due to opioid therapy,Opioid use disorder Mix 1 scoop (17 g) in liquid then take by mouth two times daily. 1700 g 3 06/24/2023 Active ondansetron (ZOFRAN ODT) 4 mg disintegrating tabletIndications:Cons tipation due to opioid therapy Place 1 Tablet (4 mg) on the tongue every 8 hours if needed for Nausea/Vomiting. 12 Tablet 06/24/2023 Active cyanocobalamin (Vitamin B-12) 1,000 mcg tabletIndications:Rest less leg,Vitamin B12 deficiency Take 1 Tablet (1,000 mcg) by mouth once daily. 90 Tablet 3 06/26/2023 Active tiZANidine (ZANAFLEX) 4 mg tabletIndications:Opio id use disorder Take 1 Tablet (4 mg) by mouth every 6 hours if needed for Muscle Spasm. 24 Tablet 07/08/2023 Active lurasidone (LATUDA) 40 mg tabletIndications:MDD (major depressive disorder), recurrent episode, moderate (HC),GERALDO (generalized anxiety disorder),Borderline personality disorder (HC) Take 1 Tablet (40 mg) by mouth once daily with a meal. 30 Tablet 07/08/2023 Active hydrOXYzine HCL (ATARAX) 50 mg tabletIndications:Opio id use disorder Take 1 Tablet (50 mg) by mouth every 6 hours if needed for Itching (anxiety, irritability). 24 Tablet 07/08/2023 Active magnesium oxide (MAG-OX 400) 400 mg tabletIndications:Cons tipation due to opioid therapy Take 1 Tablet (400 mg) by mouth once daily. 90 Tablet 3 07/22/2023 Active buprenorphine-naloxone (SUBOXONE) 8-2 mg sublingual filmIndications:Opioid use disorder Place 1 Film under the tongue two times daily. Morning and night. (42 films = 21 days) 42 Film 07/22/2023 Active Active Problems Problem Noted Date Diagnosed Date Borderline personality disorder 06/11/2023 Opioid use disorder 05/15/2023 Severe episode of recurrent major depressive disorder, without psychotic features 05/15/2023 Generalized anxiety disorder 07/04/2019 Moderate episode of recurrent major depressive d isorder 07/04/2019 Polysubstance abuse 07/04/2019 Attention deficit hyperactiv ity disorder (ADHD), combined type 07/04/2019 Palpitations 07/04/2019 Mild intermittent asthma without complication MDD (major depressive disord er), recurrent episode, moderate 08/21/2016 GERALDO (generalized anxiety disorder) 08/21/2016 GERD (gastroesophageal reflux disease) 0 Keratosis pilaris 08/23/2009 Oppositional defiant disorder of childhood or ad olescence 12/27/2008 Resolved Problems Problem Noted Date Diagnosed Date Resolved Date COVID-19 07/28/2022 05/08/2023 Overview: positive COVID-19 test (4/), See Phone Encounter on 07/29/2022. Encounters Date Type Department Care Team Description 07/29/2023 3:30 PM CDT Phone Office Visit [facility] [address] [place] [address] Tayler Vieira MD Telehealth (telephone visit requested due to stomach illness); Medication Management (f/u suboxone) 07/29/2023 Travel 07/22/2023 Telephone [facility] [address] [place] [address] Tayler Vieira MD Medication Management 07/22/[address] [address] Tayler Vieira MD Refill Request (magnesium oxide and buprenorphine-naloxon e (SUBOXONE) ) 07/08/2023 2:15 PM CDT Office Visit [facility] [address] [place] [address] Tayler Vieira MD Medication Management (medication management); Refill Request (tizanidine, hydroxyzine and Latuda) 07/08/2023 Travel 06/24/2023 2:15 PM MEDICAL RECEPTIONIST MEDICAL ASSISTANT Office Visit [facility] [address] [place] [address] Tayler Vieira MD Nausea (having nausea took zofran from dad and helped a lot) 06/24/[address] [address] Tayler Vieira MD Refill Request (buprenorphine-naloxo ne (SUBOXONE) 8-2 mg sublingual film/2 weeks) 06/24/2023 Travel 06/10/2023 2:15 PM MEDICAL RECEPTIONIST MEDICAL ASSISTANT Office Visit [facility] [address] [place] [address] Tayler Vieira MD Follow Up (Suboxone. Going well ran out of medication yesterday.) 06/10/2023 Telephone [facility] [address] [place] [address] Tayler Vieira MD Prior Authorization (lurasidone (LATUDA) 40 mg tablet - PA NOT NEEDED) 06/10/2023 Travel 06/09/2023 Telephone [facility] [address] [place] [address] Tayler Vieira MD Refill Request (buprenorphine-naloxo ne (SUBOXONE) 8-2 mg sublingual) 06/03/2023 1:50 PM MEDICAL RECEPTIONIST MEDICAL ASSISTANT Office Visit [facility] [address] [place] [address] Tayler Vieira MD Medication Management (Suboxone ); Throat Problem (Throat feels like its on fire x week when he wakes up) 06/03/2023 Telephone [facility] [address] [place] [address] Tayler Vieira MD Pharmacist Medication Management (lurasidone (LATUDA) 20 mg tablet) 06/03/2023 Travel from Last 3 Months Immunizations Name Administration Dates Next Due COVID-19 Vaccine Spikevax (M oderna 50mcg/0.5mL) 12YO+ 0460-2045 Formula PF 05/08/2023 DTaP 08/09/2002, 2,10/10/1998,05/24 HIB PRP-OMP (PedvaxHIB) 10/10/1998,05/24/1998 HPV 9 (Gardasil 9) 08/18/2016,12/14/2015, 016 Hepatitis A (Peds) 08/18/2016,11/09/2015 Hepatitis B (Peds) 11/09/2015, 0,10/10/1998,05/24 Human Papilloma Virus Vaccine 12/14/2015, 016 Inactivated Polio Vaccine 02/08/2010,,10/10/1998,05/24 Influenza A (H1N1), Inactivated 05/09/2009 Influenza Virus, Unspecified 05/09/2009,01/25/20 09,03/23/2006 Influenza, IIV3 (Age >=3 years) 05/14/2011,01/24,03/23/2006 Influenza, IIV4 05/08/2023,,05/10/2019,01/16 MMR 05/14/2011,02/08/2010 Meningococcal Vaccine (Menactra) 11/09/2015 Pneumococcal Conj 20-valent (Prevnar 20) 05/08/2023 Tdap 01/03/2017,02/08/2010 Varicella Vaccine 05/14/2011,02/08/2010 Family History * Patient is adopted Medical History Relation Name Comments Unknown Father Unknown Mother Relation Name Status Comments Father Mother Social History Tobacco Use Types Packs/Day Years Used Date Smoking Tobacco: Former Cigarettes 0.3 6.1 S tarted: 08/04/2017 Smokeless Tobacco: Never Tobacco Cessation:Counseling Given: No Alcohol Use Standard Drinks/Week Comments Not Currently 0 (1 standard drink = 0.6 oz pur e alcohol) PHQ-2 Answer Date Recorded PHQ-2 TOTAL SCORE 3 05/08/2023 Social Connections Answer Date Recorded Frequency of Communication with Friends and Fami ly 0 06/03/2023 Financial Resource Strain Answer Date R ecorded Difficulty of Paying Living Expenses 3 06/03/2023 Difficulty of Paying Living Expenses Not on file 06/03/2023 Food Insecurity Answer Date Recorded Worried About Running Out of Food in the Last Ye ar 1 06/03/2023 Transportation Needs Answer Date Record ed Lack of Transportation (Medical) 1 06/03/2023 Housing Stability Answer Date Recorded Unable to Pay for Housing in the Last Year 1 06/03/2023 Sex and Gender Information Value Date Recorded Sex Assigned at Not on file Gender Identity Not on file Sexual Orientation Not on file Obstetrics History Last Filed Vital Signs Vital Sign Reading Time Taken Comments Blood Pressure 118/80 07/08/2023 2:09 PM CDT Pulse 80 07/08/2023 2:09 PM CDT Temperature 36.6 ??C (97.9 ??F) 08/05/2022 3:47 PM CD T Respiratory Rate 22 08/05/2022 3:47 PM CDT Oxygen Saturation 96% 07/08/2023 2:09 PM CDT Inhaled Oxygen Concentration - - Weight 175.2 kg (386 lb 3.2 oz) 07/08/2023 2:09 PM CDT Height 189 cm (6' 2.41) 05/08/2023 9:55 AM MEDICAL RECEPTIONIST MEDICAL ASSISTANT Body Mass Index 49.04 05/08/2023 9:55 AM MEDICAL RECEPTIONIST MEDICAL ASSISTANT Plan of Treatment Health Maintenance Due Date Last Done Comments Influenza for age 9-49 12/27/2023 , 05/01/2020, 05/10/2019, Additional history exists BMI (ht and wt on same day) for age 18+ 05/08/2024 05/08/2023, 06/11/2021, 05/14/2021, Additional history exists Depression screening for age 12+ 05/15/2024 05/15/2023, 05/11/2023, 05/08/2023, Additional history exists Tetanus booster 01/03/2027 01/03/2017, 02/08/2010 HPV series for age 9-26 Completed 08/19/19 17, 12/14/2015, 12/14/2015, Additional history exists Tdap Completed 01/03/2017, 02/08/2010 COVID-19 vaccine series Completed 05/08/2023 HIV for age 15-65 Completed 05/08/2023 Hepatitis C screening for ag e 18-79 Completed 05/08/2023 Pneumococcal series for age 6-64 Completed 05/08/19 24 Procedures Procedure Name Priority Date/Time Associated Diagnosis Comments COMPLIANCE DRUG ANALYSIS Routine 06/24/2023 3:03 PM MEDICAL RECEPTIONIST MEDICAL ASSISTANT Opioid use disorder FERRITIN Routine 06/24/2023 2:59 PM MEDICAL RECEPTIONIST MEDICAL ASSISTANT Restless leg VITAMIN B12 Routine 06/24/2023 2:59 PM MEDICAL RECEPTIONIST MEDICAL ASSISTANT Restless leg HEMOGLOBIN Routine 06/24/2023 2:59 PM MEDICAL RECEPTIONIST MEDICAL ASSISTANT Restless leg COMPLIANCE DRUG ANALYSIS Routine 06/03/2023 2:35 PM MEDICAL RECEPTIONIST MEDICAL ASSISTANT Opioid use disorder ANTI HIV 1/2 Routine 05/08/2023 11:20 AM MEDICAL RECEPTIONIST MEDICAL ASSISTANT Screening for HIV (human immunodeficiency virus) ANTI HCV Routine 05/08/2023 11:20 AM MEDICAL RECEPTIONIST MEDICAL ASSISTANT Need for hepatitis C screening test from Last 3 Months or Most Recently Relevant to Health Maintenance Results * (ABNORMAL) COMPLIANCE DRUG ANALYSIS (06/24/2023 3:03 PM MEDICAL RECEPTIONIST MEDICAL ASSISTANT) Only the most recent of2 resultswithin the time period is included. 6-MONOACETYL MORPHINE NEG NEG ng/mL 06/26/2023 3:[address] [facility] AMPHETAMINE URINE NEG <=500 ng/mL 06/26/2023 3:[address] [facility] BARBITURATE URINE NEG <=200 ng/mL 06/26/2023 3:[address] [facility] BENZODIAZEPINE URINE NEG <=100 ng/mL 06/26/2023 3:[address] [facility] BUPRENORPHRINE URINE POS(A) <=5 ng/mL 04/2023 3:[address] [facility] COCAINE METAB URINE NEG <=300 ng/mL 06/26/2023 3:[address] [facility] ETHYLGLUCURONIDE URINE NEG <=250 ng/mL 06/26/2023 3:[address] [facility] FENTANYL URINE NEG <=4 ng/mL 06/26/2023 3:[address] [facility] METHADONE URINE NEG <=300 ng/mL 06/26/2023 3:[address] [facility] OPIATES URINE NEG <=300 ng/mL 06/26/2023 3:[address] [facility] OXYCODONE URINE NEG <=100 ng/mL 06/26/2023 3:[address] [facility] PROPOXYPHENE URINE NEG <=300 ng/mL 06/26/2023 3:[address] [facility] THC 50 URINE NEG <=50 ng/mL 06/26/2023 3:[address] [facility] TRAMADOL NEG <=200 ng/mL 06/26/2023 3:[address] [facility] PH URINE 5.6 5.0 - 7.0 06/26/2023 3:[address] [facility] CREAT UR 261 >=20 mg/dL 06/26/2023 3:[address] [facility] MASS SPECTROMETRY URINE See Below 06/26/2023 3:[address] [facility] Comment:Buprenorphine metabo lites present. Urine URINE SPECIMEN / Unknown Non-Blood / Unknown 06/24/2023 3:03 PM MEDICAL RECEPTIONIST MEDICAL ASSISTANT 06/24/2023 3:03 PM MEDICAL RECEPTIONIST MEDICAL ASSISTANT Narrative [facility] - 06/26/2023 3:27 PM MEDICAL RECEPTIONIST MEDICAL ASSISTANT Current Outpatient Medications: albuterol HFA (PRO-AIR; VENTOLIN; PROVENTIL) 90 mcg/actuation inhaler, Inhale 1- 2 Puffs by mouth every 4 hours if needed for Shortness Of Breath. buprenorphine-naloxone (SUBOXONE) 8-2 mg sublingual film, Place 1 Film under the tongue two times daily. Morning and night hydrOXYzine HCL (ATARAX) 50 mg tablet, Take 1 Tablet (50 mg) by mouth every 6 hours if needed for Itching (anxiety, irritability). lurasidone (LATUDA) 40 mg tablet, Take 1 Tablet (40 mg) by mouth once daily with a meal. magnesium oxide (MAG-OX 400) 400 mg tablet, Take 1 Tablet (400 mg) by mouth once daily. omeprazole 20 mg tablet, Take 1 Tablet (20 mg) by mouth once daily before a meal. polyethylene glycoL (MIRALAX) 17 gram/scoop powder, Mix 1 scoop (17 g) in liquid then take by mouth two times daily. tiZANidine (ZANAFLEX) 4 mg tablet, Take 1 Tablet (4 mg) by mouth every 6 hours if needed for Muscle Spasm. No current facility-administered medications for this visit. As of 06/24/2023 Release to patient->Immediate Tayler Vieira MD URINE [facility] [address] [place] [address], * HEMOGLOBIN (06/24/2023 2:59 PM MEDICAL RECEPTIONIST MEDICAL ASSISTANT) HEMOGLOBIN 16.5 13.5 - 17.5 g/dL 06/24/2023 3:09 PM MEDICAL RECEPTIONIST MEDICAL ASSISTANT [facility] MCV 91 80 - 100 fL 06/24/2023 3:09 PM MEDICAL RECEPTIONIST MEDICAL ASSISTANT [facility] Blood BLOOD SPECIMEN / Unknown Venipuncture / Unknown 06/24/2023 2:59 PM MEDICAL RECEPTIONIST MEDICAL ASSISTANT 06/24/2023 3:01 PM MEDICAL RECEPTIONIST MEDICAL ASSISTANT Tayler Vieira MD HEMATOLOGY [facility] [address] [place] [address], * FERRITIN (06/24/2023 2:59 PM MEDICAL RECEPTIONIST MEDICAL ASSISTANT) FERRITIN 139.0 30.0 - 400.0 ng/mL 06/24/2023 10:00 PM MEDICAL RECEPTIONIST MEDICAL ASSISTANT [facility] Blood BLOOD SPECIMEN / Unknown Venipuncture / Unknown 06/24/2023 2:59 PM MEDICAL RECEPTIONIST MEDICAL ASSISTANT 06/24/2023 3:01 PM MEDICAL RECEPTIONIST MEDICAL ASSISTANT Tayler Vieira MD CHEMISTRY [facility] [address] [place] [address], * VITAMIN B12 (06/24/2023 2:59 PM MEDICAL RECEPTIONIST MEDICAL ASSISTANT) VITAMIN B12 246 232 - 1,245 pg/mL 06/24/2023 10:00 PM MEDICAL RECEPTIONIST MEDICAL ASSISTANT [facility] Blood BLOOD SPECIMEN / Unknown Venipuncture / Unknown 06/24/2023 2:59 PM MEDICAL RECEPTIONIST MEDICAL ASSISTANT 06/24/2023 3:01 PM MEDICAL RECEPTIONIST MEDICAL ASSISTANT Narrative [facility] - 06/24/2023 10:00 PM MEDICAL RECEPTIONIST MEDICAL ASSISTANT Biotin supplements may cause clinically significant interference for this test assay. ??If interference is suspected, it is strongly recommended that biotin is discontinued for at least one week prior to retesting. Tayler Vieira MD CHEMISTRY Performing Organization Address City/State/[facility] Co de Phone Number [facility] [address] [place] [address], * ANTI HCV (05/08/2023 11:20 AM MEDICAL RECEPTIONIST MEDICAL ASSISTANT) HEPATITIS C ANTIBODY Non-Reacti ve Non-React mattie 05/08/2023 9:33 PM MEDICAL RECEPTIONIST MEDICAL ASSISTANT [facility] Comment:Please note, per www .CDC.gov: If a patient is known to be at high risk of HCV infection, or is symptomatic, and the physician's suspicion of HCV infection is high, HCV RNA testing is often employed and is of diagnostic value, even after an initial negative anti-HCV test result. Blood BLOOD SPECIMEN / Unknown Venipuncture / Unknown 05/08/2023 11:20 AM MEDICAL RECEPTIONIST MEDICAL ASSISTANT 05/08/2023 11:21 AM MEDICAL RECEPTIONIST MEDICAL ASSISTANT Tayler Vieira MD SEND OUTS Performing Organization Address [facility] Co de Phone Number [facility] [address] [place] [address], * ANTI HIV 1/2 (05/08/2023 11:20 AM MEDICAL RECEPTIONIST MEDICAL ASSISTANT) Pathologist [facility] HIV-1/HIV-2 SCREEN Non-Reacti ve Non-Reacti ve 05/08/2023 9:38 PM MEDICAL RECEPTIONIST MEDICAL ASSISTANT [facility] Comment:HIV-1 p24 and HIV-1/ HIV-2 Ab Not Detected. Blood BLOOD SPECIMEN / Unknown Venipuncture / Unknown 05/08/2023 11:20 AM MEDICAL RECEPTIONIST MEDICAL ASSISTANT 05/08/2023 11:21 AM MEDICAL RECEPTIONIST MEDICAL ASSISTANT Tayler Vieira MD SEND OUTS Performing Organization Address City/[facility] Co de Phone Number [facility] [address] [place] [address], from Last 3 Months or Most Recently Relevant to Health Maintenance Care Teams Drivers License Examiner Relationship Specialty Start Date End Date Tayler Vieira MD [address] [place] [address] PCP - General Family Practice 05/08/23
[2023-08-31 00:46] VITALS: BP 154/84; PULSE 78; RESP 18; TEMP 36.9; O2SAT 99
== END 2023-08-31 00:47 | disposition home or self-care (01) ==
PROVIDERS: Emergency Provider Family Medicine; PCP Student in an Organized Health Care Education/Training Program
DX: R51.9 Headache, unspecified (principal)
CPT/HCPCS: 99283; 99284

== ENCOUNTER 2023-12-20 23:02 | Outpatient (CLI) | payer BC, SELFPAY ==
--- OUTSIDE RECORDS SUMMARY | 2023-12-24 23:23 | XMS_ITS | Clinical Summary ---
Author Organization [facility] Address [place], [place] [address] Care Team Providers Care Endbander Name Role Phone Tayler Vieira MD Primary Care Prov ider Allergies Active Allergy Reactions Criticality Noted Date Comments Adhesive Rash 01/23/2010 Latex Rash 08/26/2012 Unlisted Allergen (Include Detail In Comments) Rash 05/06/2017 Patient states that he has an allergy to either zinc or stainless. Medications Medication Sig Dispensed Refills Start Date End Date Status albuterol HFA (PRO-AIR; VENTOLIN; PROVENTIL) 90 mcg/actuation inhalerIndications:Wh eeze Inhale 1-2 Puffs by mouth every 4 hours if needed for Shortness Of Breath. 3 Each 08/05/2022 Active omeprazole 20 mg tabletIndications:Gas troesophageal reflux disease, unspecified whether esophagitis present Take 1 Tablet (20 mg) by mouth once daily before a meal. 90 Tablet 3 05/08/2023 Active ondansetron (ZOFRAN ODT) 4 mg disintegrating tabletIndications:Con stipation due to opioid therapy Place 1 Tablet (4 mg) on the tongue every 8 hours if needed for Nausea/Vomiting. 12 Tablet 06/24/2023 Active tiZANidine (ZANAFLEX) 4 mg tabletIndications:Opi oid use disorder Take 1 Tablet (4 mg) by mouth every 6 hours if needed for Muscle Spasm. 24 Tablet 09/09/2023 Active triamcinolone (ARISTOCORT; KENALOG) 0.1 % creamIndications:Acut e eczema Apply topically to affected area(s) two times daily. Ankles bilaterally. Use unit rash is gone. 80 g 2 09/22/2023 Active polyethylene glycoL (MIRALAX) 17 gram/scoop powderIndications:Opi oid use disorder,Constipation due to opioid therapy Mix 1 scoop (17 g) in liquid then take by mouth two times daily. 1700 g 3 09/22/2023 Active hydrOXYzine HCL (ATARAX) 50 mg tabletIndications:Opi oid use disorder Take 2 Tablets (100 mg) by mouth every 6 hours if needed (anxiety, irritability). 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 Additional doses may be given every 2 to 3 minutes until emergency medical assistance arrives. 2 Each 2 10/06/2023 Active cyanocobalamin (Vitamin B-12) 1,000 mcg tabletIndications:Res tless leg,Vitamin B12 deficiency Take 1 Tablet (1,000 mcg) by mouth once daily. 90 Tablet 3 10/12/2023 Active magnesium oxide (MAG-OX 400) 400 mg tabletIndications:Con stipation due to opioid therapy Take 1 Tablet (400 mg) by mouth once daily. 90 Tablet 3 10/12/2023 Active traZODone (DESYREL) 100 mg tabletIndications:Ins omnia, unspecified type Take 0.5-1 Tablets (50-100 mg) by mouth at bedtime. 30 Tablet 1 10/12/2023 Active lurasidone 60 mg tabIndications:MDD (major depressive disorder), recurrent episode, moderate (HC),GERALDO (generalized anxiety disorder),Borderline personality disorder (HC) Take 1 Tablet (60 mg) by mouth with dinner. 90 Tablet 1 11/24/2023 Active buprenorphine-naloxon e (Suboxone) 12-3 mg sublingual filmIndications:Opioi d use disorder Place 1 Film under the tongue two times daily. Place film under the tongue until completely dissolved. Do not chew or swallow film. 28 Each 11/24/2023 Active Active Problems Problem Noted Date Diagnosed [...] Department Care Team Description 11/27/2023 Patient Outreach [address] [address] Chiqui Pitts Care Coordination (Discharged) 11/23/2023 Refill [facility] [address] [place] [address] Tayler Vieira MD Refill Request (lurasidone 60 mg tab /buprenorphine-nalox one (Suboxone) ) 11/13/2023 Patient Outreach [address] [address] Chiqui Pitts Care Coordination (Update) 10/30/2023 2:15 PM CDT Office Visit [facility] [address] [place] [address] Tayler Vieira MD Addiction (feeling depressed) 10/30/2023 Travel 10/26/2023 Telephone [facility] [address] [place] [address] Tayler Vieira MD Appointment 10/20/2023 Patient Outreach [facility] Care Management Navigation/[facility] [address] [place] [address] Jeffrey Ku Care Management Intake (Engagement Outreach/) 10/20/2023 Patient Outreach [facility] [address] [place] [address] Chiqui Pitts Care Coordination (Initial Outreach) 10/12/2023 3:05 PM CDT Office Visit [facility] [address] [place] [address] Tayler Vieira MD Follow Up (addiction); Occ Med (Looking for assistance with Disability) 10/12/2023 Travel 10/06/2023 10:15 AM CDT Office Visit [facility] [address] [place] [address] Krys Baldwin NP Mental Health Intake; Medication Management 10/05/2023 Travel 09/28/2023 2:40 PM CDT Office Visit [facility] [address] [place] [address] Tayler Vieira MD Addiction (FOLLOW UP); Sleep Problem (CONCERNED WITH SLEEP SCHEDULE. RECENTLY SLEPT FOR 24 HOURS. 1AM TO 1AM. HAPPENS EVERY COUPLE OF WEEKS) 09/28/2023 Travel from Last 3 Months Immunizations Name Administration Dates Next Due COVID-19 Vaccine Spikevax (M oderna 50mcg/0.5mL) 12YO+ 5080-8182 Formula PF 05/08/2023 DTaP 08/09/2002, 2,10/10/1998,05/24 HIB [...] 189 cm (6' 2.41) 05/08/2023 9:55 AM WINDOWS SERVER SPECIALIST Body Mass Index 49.78 05/08/2023 9:55 AM WINDOWS SERVER SPECIALIST Plan of Treatment Upcoming Encounters Date Type Department Care Team (Late st Contact Info) Description 02/09/2024 11:30 AM CDT Office Visit [facility] [address] [place] [address] Chris Ponce MD [address] [place] [address] Health Maintenance Due Date Last Done Comments [...] ANTI HIV 1/2 Routine 05/08/2023 11:20 AM WINDOWS SERVER SPECIALIST Screening for HIV (human immunodeficiency virus) ANTI HCV Routine 05/08/2023 11:20 AM WINDOWS SERVER SPECIALIST Need for hepatitis C screening test from Last 3 Months or Most Recently Relevant to Health Maintenance Results * (ABNORMAL) COMPLIANCE DRUG ANALYSIS (10/12/2023 3:47 PM CDT) Only the most recent of2 resultswithin the time period is included. 6-MONOACETYL MORPHINE NEG NEG ng/mL 10/19/2023 12:[address] [facility] AMPHETAMINE URINE NEG <=500 ng/mL 10/19/2023 12:[address] [facility] BARBITURATE URINE NEG <=200 ng/mL 10/19/2023 12:[address] [facility] BENZODIAZEPINE URINE NEG <=100 ng/mL 10/19/2023 12:[address] [facility] BUPRENORPHRINE URINE POS(A) <=5 ng/mL 09/26 12:[address] [facility] COCAINE METAB URINE NEG <=300 ng/mL 10/19/2023 12:[address] [facility] ETHYLGLUCURONIDE URINE NEG <=250 ng/mL 10/19/2023 12:[address] [facility] FENTANYL URINE NEG <=4 ng/mL 10/19/2023 12:[address] [facility] METHADONE URINE NEG <=300 ng/mL 10/19/2023 12:[address] [facility] OPIATES URINE NEG <=300 ng/mL 10/19/2023 12:40 PM [facility] OXYCODONE URINE POS(A) <=100 ng/mL 10/19/2023 12:40 PM [facility] PROPOXYPHENE URINE NEG <=300 ng/mL 10/19/2023 12:40 PM [facility] THC 50 URINE NEG <=50 ng/mL 10/19/2023 12:40 PM [facility] TRAMADOL NEG <=200 ng/mL 10/19/2023 12:40 PM [facility] PH URINE 5.5 5.0 - 7.0 10/19/2023 12:40 PM [facility] CREAT UR 289 >=20 mg/dL 10/19/2023 12:40 PM [facility] MASS SPECTROMETRY URINE See Below 10/19/2023 12:40 PM [facility] Comment:Buprenorphine, Norbu prenorphine, Hydroxyzine, Oxycodone, Noroxycodone, Trazodone and Trazodone metabolite present. Urine URINE SPECIMEN / Unknown Non-Blood / Unknown 10/12/2023 3:47 PM T 10/12/2023 3:[address] [facility] - 10/19/2023 12:40 PM [facility] Current Outpatient Medications: albuterol HFA (PRO-AIR; VENTOLIN; [...] (Narcan) 4 mg/actuation nasal spray, Inhale 1 Roosevelt into affected nostril(s) each time if needed [...] Release to patient->Immediate Tayler Vieira MD URINE [facility] [address] [facility] [address] [place] [address], * ANTI HCV (05/08/2023 11:20 AM WINDOWS SERVER SPECIALIST) HEPATITIS C ANTIBODY Non-Reacti ve Non-React mattie 05/08/2023 9:33 PM WINDOWS SERVER SPECIALIST [facility] Comment:Please note, per www .CDC.gov: If a patient is known to be at high risk of HCV infection, or is symptomatic, and the physician's suspicion of HCV infection is high, HCV RNA testing is often employed and is of diagnostic value, even after an initial negative anti-HCV test result. Blood BLOOD SPECIMEN / Unknown Venipuncture / Unknown 05/08/2023 11:20 AM WINDOWS SERVER SPECIALIST 05/08/2023 11:21 AM WINDOWS SERVER SPECIALIST Tayler Vieira MD SEND OUTS [facility] [address] [address], * ANTI HIV 1/2 (05/08/2023 11:20 AM WINDOWS SERVER SPECIALIST) HIV-1/HIV-2 SCREEN Non-Reacti ve Non-Reacti ve 05/08/2023 9:38 PM WINDOWS SERVER SPECIALIST [facility] Comment:HIV-1 p24 and HIV-1/ HIV-2 Ab Not Detected. Blood BLOOD SPECIMEN / Unknown Venipuncture / Unknown 05/08/2023 11:20 AM WINDOWS SERVER SPECIALIST 05/08/2023 11:21 AM WINDOWS SERVER SPECIALIST Tayler Vieira MD SEND OUTS Performing Organization Address City/[facility]/ZIP Co de Phone Number [facility] [address] [place] [address], from Last 3 Months or Most Recently Relevant to Health Maintenance Care Teams Endbander Relationship Specialty Start Date End Date [place] [address] PCP - General Family Practice 05/08/23
== END 2023-12-20 23:03 | disposition home or self-care (01) ==
LOC: AMB 12-24 23:22
PROVIDERS: PCP Student in an Organized Health Care Education/Training Program; Visit Provider Family Medicine
DX: R51.9 Headache, unspecified (principal); R11.10 Vomiting, unspecified; R07.89 Other chest pain
CPT/HCPCS: A0998

== ENCOUNTER 2023-12-21 03:05 | Emergency (ER) | payer BC, SELFPAY ==
[2023-12-21 03:13] VITALS: BP 159/98; PULSE 90; RESP 18; TEMP 36.9; O2SAT 96; BMI 45.0
--- NOTE | 2023-12-21 03:40 | CRLHL7_ITS ---
For Patients: As a result of the Cures Act, medical imaging exams and procedure reports are released immediately into your electronic medical record. You may view this report before your referring provider. If you have questions, please contact your health care provider. INDICATION: COVID positive TECHNIQUE: 1 view chest radiograph COMPARISON: None. FINDINGS: Devices: None. Lung volumes are good. Diffuse fine reticulonodular opacities throughout both lungs. No pleural effusion. No pneumothorax. Heart size is normal. IMPRESSION: Findings suggestive of a diffuse viral or atypical pneumonia. Dictated by Zenia Patel MD @ 12/21/2023 4:36:57 AM (Electronically Signed)
--- OUTSIDE RECORDS SUMMARY | 2023-12-21 03:44 | XMS_ITS | Clinical Summary ---
Author Organization [employer] [facility] Address [place], [place] [address] Care Team Providers Care Electrotype Molder Name Role Phone Tayler Vieira MD Primary Care Prov ider Allergies Active Allergy Reactions Criticality Noted Date Comments Adhesive Rash 01/23/2010 Latex Rash 08/26/2012 Unlisted Allergen (Include Detail In Comments) Rash 05/06/2017 Patient states that he has an allergy to either zinc or stainless. Medications Medication Sig Dispensed Refills Start Date End Date Status albuterol HFA (PRO-AIR; VENTOLIN; PROVENTIL) 90 mcg/actuation inhalerIndications:W heeze Inhale 1-2 Puffs by mouth every 4 hours if needed for Shortness Of Breath. 3 Each 08/05/2022 Active omeprazole 20 mg tabletIndications:Ga stroesophageal reflux disease, unspecified whether esophagitis present Take 1 Tablet (20 mg) by mouth once daily before a meal. 90 Tablet 3 05/08/2023 Active ondansetron (ZOFRAN ODT) 4 mg disintegrating tabletIndications:Co nstipation due to opioid therapy Place 1 Tablet (4 mg) on the tongue every 8 hours if needed for Nausea/Vomiting . 12 Tablet 06/24/2023 Active tiZANidine (ZANAFLEX) 4 mg tabletIndications:Op ioid use disorder Take 1 Tablet (4 mg) by mouth every 6 hours if needed for Muscle Spasm. 24 Tablet 09/09/2023 Active triamcinolone (ARISTOCORT; KENALOG) 0.1 % creamIndications:Acu te eczema Apply topically to affected area(s) two times daily. Ankles bilaterally. Use unit rash is gone. 80 g 2 09/22/2023 Active polyethylene glycoL (MIRALAX) 17 gram/scoop powderIndications:Op ioid use disorder,Constipatio n due to opioid therapy Mix 1 scoop (17 g) in liquid then take by mouth two times daily. 1700 g 3 09/22/2023 Active hydrOXYzine HCL (ATARAX) 50 mg tabletIndications:Op ioid use disorder Take 2 Tablets (100 mg) by mouth every 6 hours if needed (anxiety, irritability). 60 Tablet 2 10/06/2023 Active naloxone (Narcan) 4 mg/actuation nasal sprayIndications:Jude ysubstance (including opioids) dependence with physiological dependence (HC),Opioid use disorder Inhale 1 Rexford into affected nostril(s) each time if needed for Patient Diff To Arouse or Resp Rate < 8 / min. Additional doses may be given every 2 to 3 minutes until emergency medical assistance arrives. 2 Each 2 10/06/2023 Active cyanocobalamin (Vitamin B-12) 1,000 mcg tabletIndications:Re stless leg,Vitamin B12 deficiency Take 1 Tablet (1,000 mcg) by mouth once daily. 90 Tablet 3 10/12/2023 Active magnesium oxide (MAG-OX 400) 400 mg tabletIndications:Co nstipation due to opioid therapy Take 1 Tablet (400 mg) by mouth once daily. 90 Tablet 3 10/12/2023 Active traZODone (DESYREL) 100 mg tabletIndications:In somnia, unspecified type Take 0.5-1 Tablets (50-100 mg) by mouth at bedtime. 30 Tablet 1 10/12/2023 Active lurasidone 60 mg tabIndications:MDD (major depressive disorder), recurrent episode, moderate (HC),GERALDO (generalized anxiety disorder),Borderline personality disorder (HC) Take 1 Tablet (60 mg) by mouth with dinner. 90 Tablet 1 11/24/2023 Active buprenorphine-naloxo ne (Suboxone) 12-3 mg sublingual filmIndications:Opio id use disorder Place 1 Film under the tongue two times daily. Place film under the tongue until completely dissolved. Do not chew or swallow film. 28 Each 11/24/2023 Active lurasidone 60 mg tabIndications:MDD (major depressive disorder), recurrent episode, moderate (HC),GERALDO (generalized anxiety disorder),Borderline personality disorder (HC) Take 1 Tablet (60 mg) by mouth with dinner. 30 Tablet 1 10/06/2023 4 Discontinue d(Reorder (E-cancel not sent)) buprenorphine-naloxo ne (Suboxone) 12-3 mg sublingual filmIndications:Opio id use disorder Place 1 Film under the tongue two times daily. Place film under the tongue until completely dissolved. Do not chew or swallow film. 28 Each 10/27/2023 4 Discontinue d(Reorder (E-cancel not sent)) Active Problems Problem Noted Date Diagnosed Date Insomnia 10/07/2023 Polysubstance (including opi oids) dependence with physiological dependence 10/07/2023 Borderline personality disorder 06/11/2023 Opioid use disorder 05/15/2023 Polysubstance abuse 07/04/2019 Attention deficit hyperactiv ity disorder (ADHD), combined type 07/04/2019 Palpitations 07/04/2019 Mild intermittent asthma without complication MDD (major depressive disord er), recurrent episode, moderate 08/21/2016 GERALDO (generalized anxiety disorder) 08/21/2016 GERD (gastroesophageal reflux disease) 0 Keratosis pilaris 08/23/2009 Resolved Problems Problem Noted Date Diagnosed Date Resolved Date Severe episode of recurrent major depressive disorder, without psychotic features 05/15/202303/2024 COVID-19 07/28/2022 05/08/2023 Overview: positive COVID-19 test (/), See Phone Encounter on 07/29/2022. Generalized anxiety disorder 07/04/2019 10/07/2023 Moderate episode of recurren t major depressive disorder 07/04/2019 10/07/2023 Oppositional defiant disorde r of childhood or adolescence 12/27/2008 10/07/2023 Encounters Date Type Department Care Team Description 11/27/2023 Patient Outreach [facility] [address] [place] [address] Chiqui Pitts Care Coordination (Discharged) 11/23/2023 Refill [facility] [address] [place] [address] Tayler Vieira MD Refill Request (lurasidone 60 mg tab /buprenorphine-naloxo ne (Suboxone) ) 11/13/2023 Patient Outreach [address] [address] Chiqui Pitts Care Coordination (Update) 10/30/2023 2:15 PM CDT Office Visit [facility] [address] [place] [address] Tyaler Vieira MD Addiction (feeling depressed) 10/30/2023 Travel 10/26/2023 Telephone [facility] [address] [place] [address] Tayler Vieira MD Appointment 10/20/2023 Patient Outreach [facility] Care Management Navigation/[facility] [address] [place] [id number] Jeffrey Ku Care Management Intake (Engagement Outreach/) 10/20/2023 Patient Outreach [address] [address] Chiqui Pitts Care Coordination (Initial Outreach) 10/12/2023 3:05 PM CDT Office Visit [facility] [address] [place] [address] Tayler Vieira MD Follow Up (addiction); Occ Med (Looking for assistance with Disability) 10/12/2023 Travel 10/06/2023 10:15 AM CDT Office Visit [facility] [address] [place] [address] Krys Baldwin NP Mental Health Intake; Medication Management 10/05/2023 Travel 09/28/2023 2:40 PM CDT Office Visit [facility] [address] [place] [address] Tayler Vieira MD Addiction (FOLLOW UP); Sleep Problem (CONCERNED WITH SLEEP SCHEDULE. RECENTLY SLEPT FOR 24 HOURS. 1AM TO 1AM. HAPPENS EVERY COUPLE OF WEEKS) 09/28/2023 Travel 09/22/2023 1:00 PM CDT Office Visit [facility] [address] [place] [address] Tayler Vieira MD Addiction; Skin Problem (sKIN DISCOLORATION AND ITCHING FOR 2 MONTHS. ON THE TOP OF BOTH ANKLES AND SPREADING UPWARDS. ) 09/22/2023 Travel from Last 3 Months Immunizations Name Administration Dates Next Due COVID-19 Vaccine Spikevax (M oderna 50mcg/0.5mL) 12YO+ 2430-1065 Formula PF 05/08/2023 DTaP 08/09/2002, 2,10/10/1998,05/24 HIB [...] Used Date Smoking Tobacco: Former Cigarettes 0.3 6.4 S tarted: 08/04/2017 Smokeless Tobacco: Never Tobacco Cessation:Counseling Given: No Alcohol Use Standard Drinks/Week Comments Yes 0 (1 standard drink = 0.6 oz pur e alcohol) occationally PHQ-2 Answer Date Recorded PHQ-2 TOTAL SCORE 5 10/30/2023 Social Connections Answer Date Recorded Frequency of [...] Sign Reading Time Taken Comments Blood Pressure 130/91 10/30/2023 2:17 PM CDT Pulse 81 10/30/2023 2:17 PM CDT Temperature 36.6 ??C (97.9 ??F) 08/05/2022 3:47 PM CD T Respiratory Rate 22 08/05/2022 3:47 PM CDT Oxygen Saturation 97% 10/30/2023 2:17 PM CDT Inhaled Oxygen Concentration - - Weight 177.8 kg (392 lb) 10/06/2023 10:25 AM CDT Height 189 cm (6' 2.41) 05/08/2023 9:55 AM NURSING CLERK Body Mass Index 49.78 05/08/2023 9:55 AM NURSING CLERK Plan of Treatment Upcoming Encounters Date Type Department Care Team (Late st Contact Info) Description 02/09/2024 11:30 AM CDT Office Visit [facility] [place] [place] [address] Chris Ponce MD [address] [place] [address] Health Maintenance Due Date Last Done Comments Influenza for age 9-49 12/27/2023 4, 05/01/2020, 05/10/2019, Additional history exists BMI (ht and wt on same day) for age 18+ 05/08/2024 05/08/2023, 06/11/2021, 05/14/2021, Additional history exists Depression screening for age 12+ 10/29/2024 10/30/2023, 10/12/2023, 10/06/2023, Additional history exists Tetanus booster 01/03/2027 01/03/2017, 02/08/2010 HPV series for age 9-26 Completed 08/19/19 17, 12/14/2015, 12/14/2015, Additional history exists Tdap Completed 01/03/2017, 02/08/2010 COVID-19 vaccine series Completed 05/08/2023 HIV for age 15-65 Completed 05/08/2023 Hepatitis C screening for ag e 18-79 Completed 05/08/2023 Pneumococcal series for age 6-64 Completed 05/08/19 Procedures Procedure Name Priority Date/Time Associated Diagnosis Comments COMPLIANCE DRUG ANALYSIS Routine 10/12/2023 3:47 PM CDT Polysubstance (including opioids) dependence with physiological dependence (HC) COMPLIANCE DRUG ANALYSIS Routine 09/28/2023 3:14 PM CDT Opioid use disorder ANTI HIV 1/2 Routine 05/08/2023 11:20 AM NURSING CLERK Screening for HIV (human immunodeficiency virus) ANTI HCV Routine 05/08/2023 11:20 AM NURSING CLERK Need for hepatitis C screening test from Last 3 Months or Most Recently Relevant to Health Maintenance Results * (ABNORMAL) COMPLIANCE DRUG ANALYSIS (10/12/2023 3:47 PM CDT) Only the most recent of2 resultswithin the time period is included. 6-MONOACETYL MORPHINE NEG NEG ng/mL 10/19/2023 12:40 PM [facility] AMPHETAMINE URINE NEG <=500 ng/mL 10/19/2023 12:40 PM [facility] BARBITURATE URINE NEG <=200 ng/mL 10/19/2023 12:40 PM [facility] BENZODIAZEPINE URINE NEG <=100 ng/mL 10/19/2023 12:40 PM [facility] BUPRENORPHRINE URINE POS(A) <=5 ng/mL 09/26 12:40 PM [facility] COCAINE METAB URINE NEG <=300 ng/mL 10/19/2023 12:40 PM [facility] ETHYLGLUCURONIDE URINE NEG <=250 ng/mL 10/19/2023 12:40 PM [facility] FENTANYL URINE NEG <=4 ng/mL 10/19/2023 12:40 PM [facility] METHADONE URINE NEG <=300 ng/mL 10/19/2023 12:40 PM [facility] OPIATES URINE NEG <=300 ng/mL 10/19/2023 12:40 PM [facility] OXYCODONE URINE POS(A) <=100 ng/mL 10/19/2023 12:40 PM [facility] PROPOXYPHENE URINE NEG <=300 ng/mL 10/19/2023 12:40 PM [facility] THC 50 URINE NEG <=50 ng/mL 10/19/2023 12:40 PM [facility] TRAMADOL NEG <=200 ng/mL 10/19/2023 12:40 PM [facility] PH URINE 5.5 5.0 - 7.0 10/19/2023 12:40 PM [facility] CREAT UR 289 >=20 mg/dL 10/19/2023 12:40 PM [facility] MASS SPECTROMETRY URINE See Below 10/19/2023 12:40 PM [facility] Comment:Buprenorphine, Norbu prenorphine, Hydroxyzine, Oxycodone, Noroxycodone, Trazodone and Trazodone metabolite present. Urine URINE SPECIMEN / Unknown Non-Blood / Unknown 10/12/2023 3:47 PM CDT 10/12/2023 3:48 PM CDT [facility] - 10/19/2023 12:40 PM CDT Current Outpatient Medications: albuterol HFA (PRO-AIR; VENTOLIN; PROVENTIL) 90 mcg/actuation inhaler, Inhale 1- 2 Puffs by mouth every 4 hours if needed for Shortness Of Breath. buprenorphine-naloxone (Suboxone) 12-3 mg sublingual film, Place 2 Film under the tongue once daily. Place film under the tongue until completely dissolved. ??Do not chew or swallow film. cyanocobalamin (Vitamin B-12) 1,000 mcg tablet, Take 1 Tablet (1,000 mcg) by mouth once daily. hydrOXYzine HCL (ATARAX) 50 mg tablet, Take 2 Tablets (100 mg) by mouth every 6 hours if needed (anxiety, irritability). lurasidone 60 mg tab, Take 1 Tablet (60 mg) by mouth with dinner. magnesium oxide (MAG-OX 400) 400 mg tablet, Take 1 Tablet (400 mg) by mouth once daily. naloxone (Narcan) 4 mg/actuation nasal spray, Inhale 1 Rexford into affected nostril(s) each time if needed for Patient Diff To Arouse or Resp Rate < 8 / min. Additional doses may be given every 2 to 3 minutes until emergency medical assistance arrives. omeprazole 20 mg tablet, Take 1 Tablet (20 mg) by mouth once daily before a meal. ondansetron (ZOFRAN ODT) 4 mg disintegrating tablet, Place 1 Tablet (4 mg) on the tongue every 8 hours if needed for Nausea/Vomiting. polyethylene glycoL (MIRALAX) 17 gram/scoop powder, Mix 1 scoop (17 g) in liquid then take by mouth two times daily. tiZANidine (ZANAFLEX) 4 mg tablet, Take 1 Tablet (4 mg) by mouth every 6 hours if needed for Muscle Spasm. traZODone (DESYREL) 150 mg tablet, Take 1 Tablet (150 mg) by mouth at bedtime. triamcinolone (ARISTOCORT; KENALOG) 0.1 % cream, Apply topically to affected area(s) two times daily. Ankles bilaterally. Use unit rash is gone. No current facility-administered medications for this visit. As of 10/12/2023 Release to patient->Immediate Tayler Vieira MD URINE [facility] [address] [place] [address], [place] * ANTI HCV (05/08/2023 11:20 AM NURSING CLERK) HEPATITIS C ANTIBODY Non-Reacti ve Non-React mattie 05/08/2023 9:33 PM NURSING CLERK [facility] Comment:Please note, per www .CDC.gov: If a patient is known to be at high risk of HCV infection, or is symptomatic, and the physician's suspicion of HCV infection is high, HCV RNA testing is often employed and is of diagnostic value, even after an initial negative anti-HCV test result. Blood BLOOD SPECIMEN / Unknown Venipuncture / Unknown 05/08/2023 11:20 AM NURSING CLERK 05/08/2023 11:21 AM NURSING CLERK Tayler Vieira MD SEND OUTS Performing Organization Address [facility] Co de Phone Number [facility] [address] [place] [phone], [place] * ANTI HIV 1/2 (05/08/2023 11:20 AM NURSING CLERK) HIV-1/HIV-2 SCREEN Non-Reacti ve Non-Reacti ve 05/08/2023 9:38 PM NURSING CLERK [facility] Comment:HIV-1 p24 and HIV-1/ HIV-2 Ab Not Detected. Blood BLOOD SPECIMEN / Unknown Venipuncture / Unknown 05/08/2023 11:20 AM NURSING CLERK 05/08/2023 11:21 AM NURSING CLERK Tayler Vieira MD SEND OUTS Performing Organization Address City/[facility]/ZIP Co de Phone Number [facility] [address] [place] [phone], from Last 3 Months or Most Recently Relevant to Health Maintenance Care Teams Electrotype Molder Relationship Specialty Start Date End Date Tayler Vieira MD [address] [place] [address] PCP - General Family Practice 05/08/23
--- NOTE | 2023-12-21 04:14 | ED_ITS ---
HPI - General Adult General Date Seen: 12/21/23 Chief complaint: Sore Throat Stated complaint: covid positive Time Seen by Provider: 12/21/23 03:33 Source: patient, EMS and RN notes reviewed Mode of arrival: EMS Limitations: no limitations History of Present Illness HPI narrative: Patient is a 28-year-old male who comes in saying he has been feeling poorly today, he has had a headache, sore throat, cough, body aches, his legs feel tingly, and he has been vomiting. He took a COVID test at home and says that it was positive. He says he does not have any medications, and was feeling ove rwhelmed by how poorly he felt, so he called the ambulance. He says he does not have any way of getting home. Does live by himself here in town. He denies significant prior medical history, has some underlying mild asthma. He denies tobacco alcohol or drug use. He has not had a fever that he knows of. He says he had some leftover oxycodone from a prior ankle injury any tried taking those but it did not seem to help his symptoms. Related Data Home Medications ?Medication ?Instructions ?Recorded ?Confirmed albuterol sulfate 90 mcg/actuation 1 - 2 puff inhalation Q4H PRN 12/10/22 05/04/23 aerosol inhaler (Ventolin HFA) dyspnea omeprazole 20 mg capsule,delayed 20 mg PO DAILY 08/30/23 08/30/23 release Allergies Allergy/AdvReac Type Severity Reaction Status Date / Time No Known Drug Allergies Allergy Verified 08/30/23 22:21 Review of Systems Status of ROS: Reports: 10 or more systems reviewed and unremarkable except as noted in History and below [facility] Social History Smoking Status: Former smoker Do you use any of these nicotine containing products: None Second hand tobacco smoke exposure: No How often do you have a drink containing alcohol: monthly or less How many standard drinks containing alcohol do you have on a typical day: 1 or 2 How often do you have six or more drinks on one occasion: Never AUDIT-C Alcohol total score: 1 Non-prescribed substance use: denies use service: No Exam Narrative: Exam Narrative: Vital signs as noted above. In general, an alert, nontoxic young man, somewhat diaphoretic. Voice is normal. Head: Normocephalic, atraumatic. Eyes: Pupils are equal reactive. Extraocular movements are full. Conjunctivae are normal. ENT: Mucous membranes are moist. Throat is normal. Neck: Supple without lymphadenopathy. No meningeal signs. Heart: Regular rate and rhythm. No murmur or rub. Lungs: Clear bilaterally. No increased work of breathing, crackles or wheezes. Abdomen: Soft and nontender. Extremities: Well perfused. No edema. No calf tenderness. Pulses intact. Neurologic: Patient is alert and oriented to person and place. Speech is fluent. Face is symmetric. Moves all extremities equally. Affect: Normal. Skin: Warm and dry. Well perfused. Const: Vital Signs, click to edit/add: Vital Signs - 24 hr 12/21/23 03:13 12/21/23 06:33 Temperature 98.5 F 98.8 F Pulse Rate [Pulse Oximeter] 90 82 Respiratory Rate 18 18 Blood Pressure [Ri ght Upper Arm] 159/98 H 132/78 Pulse Oximetry 96 98 Oxygen Delivery Me thod Room Air Room Air Documenting provider has reviewed patient's vital signs: yes Course Course ED Course: Overall, exam is benign aside from him being somewhat diaphoretic here. Vital signs are unremarkable, he is afebrile at this time. Lungs are clear and O2 sats are 96%. Will give him some fluids and Zofran, Toradol, check some basic labs and an x-ray. Repeat COVID test to confirm diagnosis. Labs are unremarkable here, his CBC shows a normal white blood cell count and hemoglobin, normal metabolic panel with the exception of a potassium of 3.5, normal LFTs, CRP mildly elevated at 1.8. Urinalysis did show ketones, he was given fluids here, did not have any further vomiting and was able to tolerate oral hydration. Reviewed a diagnosis of COVID with him, would anticipate this will cause at least a week to 10 days of symptoms possibly up to 14. Discussed that there is no medication that will really resolve his symptoms that ibuprofen and Tylenol will be helpful for body aches, headache sore throat etcetera. Maintain hydration, I prescribed Zofran if needed for further nausea and vomiting, return any time for significant worsening respiratory symptoms, persistent vomiting despite treatment, or other acute worsening. See primary care if not improving over the next couple of weeks. Vital Signs Vital signs: Initial Vital Signs Temperature 98.5 F 12/21/23 03:13 Temperature Source Temporal Artery Scan 12/21/23 03:13 Pulse Rate 90 12/21/23 03:13 Pulse Rhythm Regular 12/21/23 03:13 Respiratory Rate 18 12/21/23 03:13 Blood Pressure 159/98 H 12/21/23 03:13 Blood Pressure Mean 118 H 12/21/23 03:13 Blood Pressure Position Sitting 12/21/23 03:13 Pulse Oximetry 96 12/21/23 03:13 Oxygen Delivery Method Room Air 12/21/23 03:13 Vital Signs Temperature 98.5 F 12/21/23 03:13 Pulse Rate 90 12/21/23 03:13 Respiratory Rate 18 12/21/23 03:13 Blood Pressure 159/98 H 12/21/23 03:13 Pulse Oximetry 96 12/21/23 03:13 Oxygen Delivery Method Room Air 12/21/23 03:13 Temperature 98.8 F 12/21/23 06:33 Pulse Rate 82 12/21/23 06:33 Respiratory Rate 18 12/21/23 06:33 Blood Pressure 132/78 12/21/23 06:33 Pulse Oximetry 98 12/21/23 06:33 Oxygen Delivery Method Room Air 12/21/23 06:33 Medical Decision Making Lab Data Labs: Lab Results 12/21/23 12/21/23 Range/Units 03:55 04:30 WBC 7.22 (4.50-11.00) K/uL RBC 5.60 (4.30-5.90) m/uL Hgb 17.1 (13.5-17.5) gm/dL Hct 50.0 (37.0-53.0) % MCV 89 (80-100) fL MCH 31 (26-34) pg MCHC 34 (32-36) gm/dL RDW Coeff of Kasie 13.5 (11.5-15.5) % Plt Count 234 (140-440) K/uL Neut % (Auto) 84.0 H (42.0-72.0) % Lymph % (Auto) 4.8 L (20-44) % [place] % (Auto) 9.7 (0.0-11.0) % Eos % (Auto) 0.1 (0.0-7.0) % Baso % (Auto) 0.3 (0.0-3.0) % Neut # (Auto) 6.10 (1.7-7.0) K/uL Lymph # (Auto) 0.30 L (0.90-2.90) K/uL Clinton # (Auto) 0.70 (0.00-0.90) K/UL Eos # (Auto) 0.01 (0.00-0.50) K/uL Baso # (Auto) 0.02 (0.00-0.30) K/uL Abs Immat Gran (auto) 0.08 (0.00-0.30) K/uL Imm/Tot Granulo (auto) 1.1 % Sodium 137 (135-149) mmol/L Potassium 3.5 L (3.6-5.1) mmol/L Chloride 100 (96-114) mmol/L Carbon Dioxide 25 (20-32) mmol/L Anion Gap 12 (7-15) mEq/L BUN 7 (5-24) mg/dL Creatinine 1.0 (0.5-1.5) mg/dL Estimated Creat Clear 133.79 Estimated GFR 106 ml/min Glucose 114 (60-115) mg/dL Calcium 9.5 (8.4-10.6) mg/dL Total Bilirubin 1.0 (0.1-1.5) mg/dL Direct Bilirubin 0.3 (0.0-0.5) mg/dL AST 28 (12-35) U/L ALT 38 (4-50) U/L Alkaline Phosphatase 93 (40-150) U/L C-Reactive Protein 1.8 H (0.5-1.0) mg/dL Total Protein 8.4 H (6.0-8.3) g/dL Albumin 5.1 H (3.3-5.0) g/dL Urine Color Yellow (Yellow) Urine Appearance Clear (Clear) Urine pH >= 9.0 H (5.0-8.5) Ur Specific [place] 1.020 (1.000-1.030) Urine Protein 1+ A (Negative) Urine Glucose (UA) Negative (Negative) Urine Ketones 2+ A (Negative) Urine Blood Negative (Negative) Urine Nitrite Negative (Negative) Urine Bilirubin 1+ A (Negative) Urine Urobilinogen 0.2 (0.2-1.0) Ur Leukocyte Esterase Negative (Negative) Urine RBC 0-2 (0-2) Urine WBC 0-2 (0-5) Ur Squamous Epith Cells Few (None-Few) Amorphous Sediment Few A (None) Urine Bacteria Few A (None) Urine Mucus Moderate A (None) SARS-CoV-2 (PCR) POSITIVE SARS-CoV-2 A (Negative) Discharge Plan Discharge Clinical Impression: COVID-19 Patient Disposition: Home, Self-Care Condition: Improved Instructions: COVID-19 (Coronavirus Disease 2019) (ED) Additional Instructions: You may feel poorly for up to 10-14 days. You can use Zofran if needed for nausea or vomiting. Other medications that can be helpful with viral symptoms are ibuprofen 400 mg 3 times daily, in combination with 1000 mg of Tylenol 3 times daily if needed. For severe worsening symptoms, significant shortness of breath, vomiting despite treatment, return to the emergency department. Follow- up with primary care if not improving over the next 2 weeks. Prescriptions: No Action omeprazole 20 mg capsule,delayed release(DR/EC) 20 mg PO DAILY albuterol sulfate [Ventolin HFA] 90 mcg/actuation HFA aerosol inhaler 1 - 2 puff INHALATION Q4H PRN (Reason: dyspnea) Follow Up/Referrals: Tayler Vieira MD [Primary Care Provider] - Stand Alone Forms: [employer] Info Instructions
[2023-12-21 04:16] LABS: Appearance Urine Clear (Clear); Bilirubin Urine 1+ (Negative); Blood Urine Negative (Negative); Color Urine Yellow (Yellow); Glucose Urine Negative (Negative); Ketones Urine 2+ (Negative); Leukocyte Esterase Urine Negative (Negative); Nitrite Urine Negative (Negative); Protein Urine 1+ (Negative); Urobilinogen Urine 0.2 (0.2-1.0)
[2023-12-21 04:28] LABS: Amorphous Sediment Urine Few; Bacteria Urine Few; Mucus Urine Moderate; RBC Urine 0-2 (0-2); Squamous Epithelial Cell Urine Few (None-Few); WBC Urine 0-2 (0-5); pH Urine >= 9.0 (5.0-8.5)
[2023-12-21 04:50] LABS: Basophils Absolute Auto 0.02 K/uL (0.00-0.30); Basophils Percent Auto 0.3 % (0.0-3.0); Eosinophils Absolute Auto 0.01 K/uL (0.00-0.50); Eosinophils Percent Auto 0.1 % (0.0-7.0); Hemoglobin* 17.1 gm/dL (13.5-17.5); Immature Granulocytes Abs Auto 0.08 K/uL (0.00-0.30); Immature Granulocytes Pct Auto 1.1 %; Lymphocytes Percent Auto 4.8 % (20-44); Mean Corpuscular HGB Conc 34 gm/dL (32-36); Mean Corpuscular Hemoglobin 31 pg (26-34); Mean Corpuscular Volume 89 fL (80-100); Monocytes Percent Auto 9.7 % (0.0-11.0); Platelet Count* 234 K/uL (140-440); RDW Coefficient of Variation % 13.5 % (11.5-15.5); Slide Review Reflex No; White Blood Count* 7.22 K/uL (4.50-11.00)
[2023-12-21 04:52] LABS: Albumin* 5.1 g/dL (3.3-5.0); Chloride* 100 mmol/L (96-114)
[2023-12-21 04:53] LABS: Potassium* 3.5 mmol/L (3.6-5.1); Sodium* 137 mmol/L (135-149)
[2023-12-21 04:55] LABS: Est. Creatinine Clearance* 133.79; Estimated Glomerular Filt Rate 106 ml/min
[2023-12-21 04:56] LABS: Alanine Aminotransferase* 38 U/L (4-50); Alkaline Phosphatase* 93 U/L (40-150); Anion Gap 12 mEq/L (7-15); Aspartate Amino Transferase* 28 U/L (12-35); Bilirubin Direct* 0.3 mg/dL (0.0-0.5); Blood Urea Nitrogen* 7 mg/dL (5-24); Carbon Dioxide* 25 mmol/L (20-32); Glucose* 114 mg/dL (60-115); Total Protein* 8.4 g/dL (6.0-8.3)
[2023-12-21 04:57] LABS: Calcium* 9.5 mg/dL (8.4-10.6)
[2023-12-21 04:59] LABS: C Reactive Protein* 1.8 mg/dL (0.5-1.0)
[2023-12-21 05:17] LABS: SARS PCR* POSITIVE SARS-CoV-2 (Negative)
[2023-12-21 06:33] VITALS: BP 132/78; PULSE 82; RESP 18; TEMP 37.1; O2SAT 98
--- NOTE | 2023-12-21 06:34 | PC.NURSE ---
pt tolerating sips of water, denies nausea.
== END 2023-12-21 07:20 | disposition home or self-care (01) ==
PROVIDERS: Emergency Provider Emergency Medicine; PCP Student in an Organized Health Care Education/Training Program
DX: U07.1 COVID-19 (principal)
CPT/HCPCS: 36415; 71045; 80048; 80076; 81001; 85025; 86140; 87086; 87635; 96374; 96375; 99284